=== PATIENT | male | born 1945 | race Caucasian/White ===

== ENCOUNTER 2020-07-01 15:54 | Inpatient (IN) | payer MEDICARE, SELFPAY ==
[2020-07-01] VITALS (9 sets, daily range): BP systolic 136–179; BP diastolic 29–105; PULSE 81–100; RESP 18; TEMP 36.7; O2SAT 96–98; BMI 27.2; BMI 25.2
--- NOTE | 2020-07-01 16:07 | CT_ITS ---
Procedure: CT ABDOMEN PELVIS WO CON Patient Age:74Y CLINICAL INDICATION: RLQ abd pain Abdominal pain with urinary retention past 8-10 days. Has been treated for prostate infection COMPARISON: No exams were available for comparison TECHNIQUE: No IV nor oral contrast utilized Helical axial images obtained with thickened axial images along with sagittal and coronal reformats. All CT scans at the facility use one or more dose reduction, viz: automated exposure control, ma/kV adjustment per patient size (including targeted exams where dose is matched to indication, i.e. head), or iterative reconstruction technique. FINDINGS: Lower thorax:. Moderate/Generous appearing right pleural effusion Prominent atelectatic changes right lung base involving R ML and RLL. Favor atelectasis but difficult to totally exclude early infiltrate. Associated elevation the right hemidiaphragm reflects volume loss due to atelectasis. Left lung base clear. Heart normal size. Small hiatal hernia noted. Heart normal size ABDOMEN: Spleen: unremarkable Adrenals: unremarkable Liver: No significant findings on this noncontrast study. Subtle low-density liver near falciform ligament region is likely subtle small area focal fatty change and unimpressive but noted scant. Ligamentum teres barely evident thin fluid overlying anterior aspect of right lobe noted fusion the liver. Gallbladder nondistended. No discrete calcified stones. No wall thickening evident Pancreas: No masses but no ductal dilatation. Stranding and inflammation adjacent to the head of the pancreas most likely is related to the renal process described in section. tract Prostate is enlarged measuring up to 6.1 cm transverse and near 5 cm height. Enlarged prostate slightly indents the base the bladder. Urinary bladder is markedly distended to measuring near 22 cm in maximum length x 13 cm wide. No bladder stones definitive bladder masses otherwise seen. Ureters diffusely dilated bilaterally-but particularly note right ureter is more dilated than the left. The right appears most dilated at the right pelvis where dilated right ureter seen leading down to the right trigone. I see no calculi along the course of either ureter. There is some mild thickening the region the right trigone but no definitive mass. Left kidney. Mild hydronephrosis with a 3.3 cm left probable debris-filled parapelvic cyst along inferior aspect the left renal pelvis but this well will benefit from follow-up as it is slightly higher density than simple fluid and cystic nature should be better confirmed on subsequent follow-up CT or ultrasound. Right kidney. Severe hydronephrosis.-Marked distention and dilatation of the right renal pelvis which measures nearly 7.5 cm AP dimension I believe accounts for the appearance here. VRC question possible large parapelvic cyst on right but I favor this is severe dilatation of right renal pelvis-. With associated with pronounced right caliectasis. This high-grade obstruction has resulted prominent pelvicaliceal backflow and prominent leakage from the from right pelvocaliceal system. V RC preliminary report described possible rupture of right pelvocaliceal system and this is a possibility. Either case this resulted in a a prominent fluid collection/urinoma posterior, and seen extending and continuous fashion of towards the right inguinal region but of this fluid collection resides anterior to the right psoas muscle at the posterior aspect right perirenal space I presume this is all a urinoma type process from the obstruction but it is difficult to totally exclude infection associated with this fluid collection. It appears to have a
--- NOTE | 2020-07-01 16:08 | HMH.EDGENADL ---
ED Disposition Clinical Impression: Acute renal failure Qualifiers: Acute renal failure type: with other specified pathological lesion Qualified Code(s): N17.8 - Other acute kidney failure Disposition: Admitted As Inpatient Condition on Discharge: Serious Referrals: Belén Reyes DO [Primary Care Provider] - - Critical Care Critical Care Time: No Attestation: On , the high probability of a clinically significant, sudden or life threatening deterioration of the following system(s) required my full and direct attention, intervention and personal management. The time I documented below is in addition to time spent performing reported procedures but includes the following listed in this critical care notation. Medical Decision Making - Medical Records Medical records reviewed: Yes: I reviewed the patient's medical records. - Thad Inquiry Pt receiving controlled substance: No Vital Signs: 07/01/20 16:01 07/01/20 16:10 07/01/20 17:29 Temperature 98.1 F Temperature Source Oral Pulse Rate [Radial] 84 85 81 Respiratory Rate 18 Blood Pressure [Right Arm] 175/29 H 179/105 H 163/98 H Blood Pressure Mean [Right Arm] 77 129 119 Blood Pressure Source [Right Arm] Automatic Cuff Automatic Cuff Automatic Cuff Blood Pressure Position [Right Arm] Sitting Sitting Sitting 02 Sat by Pulse Oximetry 97 97 96 Oxygen Delivery Method Room Air Room Air Room Air 07/01/20 18:29 07/01/20 18:30 Temperature Temperature Source Pulse Rate [Radial] 83 85 Respiratory Rate Blood Pressure [Right Arm] 167/92 H 173/86 H Blood Pressure Mean [Right Arm] 117 115 Blood Pressure Source [Right Arm] Automatic Cuff Automatic Cuff Blood Pressure Position [Right Arm] Sitting Sitting 02 Sat by Pulse Oximetry 96 97 Oxygen Delivery Method Room Air Room Air - Lab Data Lab results reviewed: Yes: I reviewed the patient's lab results. Lab Results 07/01/20 17:04: WBC 17.4 H, RBC 4.70, Hgb 14.1, Hct 41.7 L, MCV 88.8, MCH 30.0, MCHC 33.8, RDW 13.1, Plt Count 501 H, MPV 7.9, Neut % (Auto) 86.3 H, Lymph % (Auto) 9.2 L, [place] % (Auto) 4.0, Eos % (Auto) 0.2, Baso % (Auto) 0.2, Neut # (Auto) 15.0 H, Lymph # (Auto) 1.6, [place] # (Auto) 0.7, Eos # (Auto) 0.0, Baso # (Auto) 0.0, Total Counted 100, Neutrophils % (Manual) 82 H, Lymphocytes % (Manual) 13, Monocytes % (Manual) 5, Platelet Estimate Slight increase, RBC Morphology Normal 07/01/20 17:04: Sodium 118 L, Potassium 5.1, Chloride 85 L, Carbon Dioxide 17 L, Anion Gap 21.1 H, BUN 65 H, Creatinine 6.00 H, Estimated Creat Clear 12, Estimated GFR 9 L*, Est GFR ( Amer) 11 L*, Glucose 105 H, Calcium 9.1, Total Bilirubin 0.7, AST 37, ALT 34, Alkaline Phosphatase 107, Total Protein 6.8, Albumin 3.5, Globulin 3.3 H, Albumin/Globulin Ratio 1.1 07/01/20 17:04: Urine Color Yellow, Urine Appearance Clear, Urine pH 5.5, Ur Specific [place] 1.010, Urine Protein Negative, Urine Glucose (UA) Negative, Urine Ketones Negative, Urine Blood Negative, Urine Nitrate Negative, Urine Bilirubin Negative, Urine Urobilinogen 0.2, Ur Leukocyte Esterase Negative, Urine WBC Occasional, Ur Squamous Epith Cells Occasional, Urine Bacteria Trace 07/01/20 17:04: Lactate 0.9 07/01/20 17:04: Lipase 238 Result diagrams: 07/01/20 17:04 07/01/20 17:04 Orders (Tests/Meds): ORDERS Category Date Time Status CT abdomen pelvis wo con Stat Cat Scan 07/01/20 16:07 Taken Osmolality Stat Lab 07/01/20 17:04 Received - CT Data CT Scan: Abdomen, Pelvis Time Received: 16:[address] Reviewed: Yes: I have reviewed the patient's CT results, I discussed the CT results w/the radiologist, I have viewed the radiologist's interpretation Preliminary Findings: Abnormal Findings Narrative: #1 markedly distended urinary bladder with subsequent bilateral hydroureteral nephrosis but no obstructing calculi #2 rupture in the right collecting system with extensive urinoma formation in the right perirenal and pararenal spaces extending all the way down
--- NOTE | 2020-07-01 17:09 | PC.NURSE ---
1800 ml of urine out through larios at this time.
[2020-07-01 17:17] LABS: Microscopic, Urine URINE MICROSCOPIC (MICROSCOPIC)
--- NOTE | 2020-07-01 17:17 | ECG_ITS ---
APPROVED REPORT Exam: Resting ECG HR:83 bpm ECG Measurements Heart Rate 83 AXES WI 150 P 25 QRSd 94 QRS 39 QT 362 T 19 QTc 425 <Conclusion> Normal sinus rhythm Normal ECG Electronically signed by : Alexander Ascencio, 07/02/2020 22:03:55
--- NOTE | 2020-07-01 17:23 | PC.NURSE ---
HARRISON BLACKBURN speaking with JONNIE at this time.
[2020-07-01 17:30] LABS: Appearance,Urine CLEAR (Clear); Basophils % 0.2 % (0.1-2.0); Bilirubin,Urine Negative (Negative); Blood, Urine Negative (Negative); Chloride 85 mmol/L (98-107); Color,Urine YELLOW (Yellow); Eosinophils % 0.2 % (0.1-12.0); Glucose,Urine (UA) Negative (Negative); Hematocrit 41.7 % (42.0-52.0); Hemoglobin 14.1 g/dL (14.1-18.0); Ketones,Urine Negative (Negative); Leukocyte Esterase,Urine Negative (Negative); Lymphocytes # 1.6 K/mm3 (0.7-4.5); Lymphocytes % 9.2 % (10-50); Mean Corpuscular HGB Conc 33.8 g/dL (31.8-35.4); Mean Corpuscular Volume 88.8 fl (80-94); Mean Platelet Volume 7.9 fl (7.4-10.4); Monocytes # 0.7 K/mm3 (0.1-1.0); Neutrophils % 86.3 % (37.0-80.0); Nitrate,Urine Negative (Negative); PH,Urine 5.5 (5.0-8.5); Platelet Count 501 K/mm3 (142-424); Potassium 5.1 mmoL/L (3.5-5.1); Protein,Urine Negative (Negative); Red Cell Distribution Width 13.1 % (11.5-17.5); Sodium 118 mmol/L (136-145); Urobilinogen,Urine 0.2 EU/dl (0.2); White Blood Count 17.4 K/mm3 (4.8-10.8)
[2020-07-01 17:33] LABS: Alanine Aminotransferase 34 U/L (12-78); Albumin Level 3.5 g/dl (3.5-5.0); Albumin/Globulin Ratio 1.1 (1.1-1.8); Alkaline Phosphatase 107 U/L (38-126); Anion Gap 21.1 mEq/L (5-15); Aspartate Amino Transferase 37 U/L (17-59); Bilirubin,Total 0.7 mg/dl (0.2-1.3); Blood Urea Nitrogen 65 mg/dl (9-20); Calcium 9.1 mg/dl (8.4-10.2); Carbon Dioxide 17 mmol/L (22.0-30.0); Creatinine Clearance Estimated 12 mL/min (50-200); Estimated Glomerular Filt Rate 9 ml/min (>60); GFR (African American) 11 ML/MIN (>60); Globulin 3.3 g/dL (1.3-3.2); Glucose 105 mg/dl (74-100); Total Protein,Serum 6.8 g/dl (6.3-8.2)
[2020-07-01 17:34] LABS: Lactic Acid 0.9 mmol/L (0.7-2.1); Lipase 238 U/L (23-300)
[2020-07-01 17:35] LABS: MANUAL DIFFERENTIAL MANUAL DIFFERENTIAL (MANUAL DIFF)
[2020-07-01 17:38] LABS: Bacteria,Urine Trace /lpf; Squamous Epithelial Cell,Urine Occasional #/hpf (0-5); WBC,Urine Occasional #/hpf (0-3)
--- NOTE | 2020-07-01 17:49 | PC.NURSE ---
Calling [facility] at this time.
--- NOTE | 2020-07-01 17:51 | PC.NURSE ---
HARRISON BLACKBURN speaking with Dr De León at
[2020-07-01 17:58] LABS: Lymphocytes % 13 % (10-50); Monocytes % 5 % (2-9); Neutrophils % 82 % (42-76); Platelet Estimate Slight Increase; RBC Morphology Normal; Total Cells Counted 100
--- NOTE | 2020-07-01 18:17 | PC.NURSE ---
Per Dr Howard MD at was trying to override the divert to accept pt. Will call back.
--- NOTE | 2020-07-01 18:33 | PC.NURSE ---
Dr Lawrence speaking with [facility] again at this time. Pt urinated 950ml through larios
--- NOTE | 2020-07-01 18:39 | PC.NURSE ---
Service Dr novak.
--- NOTE | 2020-07-01 18:41 | PC.NURSE ---
Dr Thornton returned call.
--- NOTE | 2020-07-01 18:57 | PC.NURSE ---
contacted house wirer for bed assignment
--- NOTE | 2020-07-01 20:11 | PC.NURSE ---
PT ARRIVED TO THE FLOOR VIA STRETCHER FROM ED AT 2010.
--- NOTE | 2020-07-01 20:20 | PC.NURSE ---
noted invanz incorrectly placed on this patient, received call from barry draper to clarify situation. noted same med on patient in room 8 in ed placed at same time. discussed with doctor who states there is no documented infection on the chart.
[2020-07-01 21:08] LABS: Anion Gap 20.7 mEq/L (5-15); Blood Urea Nitrogen 58 mg/dl (9-20); Calcium 8.9 mg/dl (8.4-10.2); Carbon Dioxide 16 mmol/L (22.0-30.0); Chloride 93 mmol/L (98-107); Creatinine Clearance Estimated 17 mL/min (50-200); Estimated Glomerular Filt Rate 14 ml/min (>60); Glucose 99 mg/dl (74-100); Potassium 4.7 mmoL/L (3.5-5.1); Sodium 125 mmol/L (136-145)
[2020-07-01 21:09] LABS: GFR (African American) 17 ML/MIN (>60)
--- NOTE | 2020-07-01 22:10 | HMH.HP ---
*Admission Date: 07/01/20 *Chief complaint: Right sided abdominal pain *History of present illness: This 74-year-old white male was admitted from the emergency room at [facility]. He presented with complaints of right sided abdominal pain. He has been followed over the past several weeks by a provider by the name of Belén Reyes in [facility], and has been treated for state problems he states. He has had progressive difficulty in urinating. He passes small amounts of water and then feels that he must urinate again. He has had no fever. He has had no vomiting, he has had no diarrhea. His discomfort became great today and he presented in the emergency room. There a CT revealed urinary obstruction with massive dilatation of the bladder plus evidence of a rupture of the ureter on the right with a urinoma. Upon bladder catheterization he was relieved of 2500 cc of urine. He states that at this time he feels much improved with much less pain on the right. Dr. Lawrence in the emergency room made contact with the [facility] for transfer of this patient, but there was no bed availability at this time. [facility] stated that transfer in the morning was a possibility. [facility] History Medical History: Denies:: Atrial Fibrillation, Cancer, Congestive Heart Failure, Diabetes Mellitus Type 1, Diabetes Mellitus Type 2, Kidney Stones, Urinary Tract Infection *Have you ever received a pneumonia vaccine?: No *Have you received a flu vaccine this season?: Yes Other Medical History: Denies: Hypothyroidism, Thyroid Disease Laterality Cases: Left: Other (left chest lesion from injury age 14) Other Surgeries: Yes: Hernia Repair (right groin) Comment: Has received injections in his right knee for arthritis. He also has arthritis of the left knee. - *Social History Last grade of school completed: Some college Smoking Status: Never smoker Alcohol Intake: never *Occupational Status:: retired ([place] in [facility]. 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 Mother with osteoarthritis.), Cancer (Sister with breast cancer), no Thyroid Disorder Review of Systems - Constitutional Reports anorexia, Denies chills, Denies fever(s) - Eyes Reports requires corrective lenses, Denies change in vision - ENT Denies difficulty swallowing - *Cardiovascular Denies chest pain, Denies irregular heart rhythm, Denies rapid, pounding, or irregular heartbeat - *Respiratory Denies chest congestion - *Gastrointestinal Reports abdominal pain, Denies change in bowel habits, Denies constipation - *Genitourinary Reports difficulty urinating, Reports side pain, Denies testicle pain (History of decrease in size of left testicle vascular etiology.) - *Musculoskeletal Denies muscle weakness - Integumentary/Breasts Reports breast skin changes (Scar due to previous surgery) - *Neurologic Denies abnormal walking, Denies behavioral changes, Denies dizziness - Psychiatric Denies behavioral changes - Endocrine Denies rapid, pounding, or irregular heartbeat - Hematologic/Lymphatic Denies easy bleeding - Allergic/Immunologic Denies GI upset with certain foods Meds Home Medications Medication Instructions Recorded Confirmed Type Glucosamine/D3/Boswellia Mel 1 each PO DAILY 07/01/20 07/01/20 History [Osteo Bi-Flex Tablet] Mv-Mn/Folic Acid/Lutein/Nlk106 1 each PO DAILY 07/01/20 07/01/20 History [Mens Multivit High Potency Tab] [place]-3 Fatty Acids/Fish Oil 1 each PO DAILY 07/01/20 07/01/20 History [[place] 3 1,000 mg Softgel] Tamsulosin HCl 0.4 mg PO DAILY 07/01/20 07/01/20 History Allergies Allergy/AdvReac Type Severity Reaction Status Date / Time acetaminophen [From Lortab] Allergy Verified 07/01/20 16:06 codeine Allergy Verified 07/01/20 16:06 hydrocodon
--- NOTE | 2020-07-01 22:19 | ECG_ITS ---
APPROVED REPORT Exam: Resting ECG HR:100 bpm ECG Measurements Heart Rate 100 AXES MS 188 P QRSd 94 QRS 14 QT 338 T 43 QTc 436 <Conclusion> Normal sinus rhythm,PAC'S Noted Otherwise a Normal ECG Electronically signed by : Alexander Ascencio, 07/02/2020 21:55:06
[2020-07-02] VITALS (12 sets, daily range): BP systolic 113–147; BP diastolic 75–91; PULSE 70–98; RESP 14–18; TEMP 36.5–37.1; O2SAT 93–97; BMI 23.8
--- NOTE | 2020-07-02 02:25 | PC.NURSE ---
PT IS A&O X4. HE RESTED WELL WITH EYES CLOSED THIS SHIFT WITH MILD C/O PAIN. HE STATES THE PAIN IS IN HIS RIGHT KNEE FROM ARTHRITIS, DENIES PAIN OF ABD THUS FAR THIS SHIFT. PT ALSO STATES HE HAS NOT BEEN ABLE TO GET HIS KNEE INJECTIONS RECENTLY AND HAS BEEN DEALING WITH A GREAT DEAL OF PAIN TO HIS RIGHT KNEE. HE TAKES TYLENOL AND IBUPROFEN AT HOME FOR MILD RELIEF. PT RATES KNEE PAIN A 2/10 AT TIME OF ADMISSION, AND STATES HE WILL BE OKAY UNTIL IN THE MORNING . DENIED PAIN WITH LIGHT ABD PALPATION. TOLERATES RA WELL WITH NO C/O SOA. CLEAR BREATH SOUNDS NOTED UPON AUSCULTATION. RR NOTED EVEN AND UNLABORED. +1 PITTING EDEMA NOTED TO BLE. ADEQUATE URINE OUTPUT NOTED THUS FAR PER FC, GREATER THAN 4,500 CC URINE OUTPUT. URINE NOTED CLEAR AND BRIGHT YELLOW IN COLOR. NO ABD DISTENTION NOTED. PT STATES HIS LAST BM WAS 07/01/20 PRIOR TO ARRIVAL AT [facility]. VSS. REMAINS SAFE. REFUSED TEDS. CALL LIGHT WITHIN REACH. WILL CONTINUE TO MONITOR.
--- NOTE | 2020-07-02 03:15 | PC.NURSE ---
SPOKE WITH JEREMIAS THE TRANSFER NURSE AT . SHE CALLED FOR AN UPDATE ON THE PT. STATES SHE WILL CALL BACK LATER THIS AM TO GIVE AN UPDATE ON STATUS OF OPEN BED FOR PT, HE IS HIGH PRIORITY AT THIS TIME.
[2020-07-02 05:57] LABS: Basophils % 0.2 % (0.1-2.0); Eosinophils % 0.3 % (0.1-12.0); Hematocrit 40.7 % (42.0-52.0); Hemoglobin 13.5 g/dL (14.1-18.0); Lymphocytes # 1.2 K/mm3 (0.7-4.5); Lymphocytes % 10.3 % (10-50); Mean Corpuscular HGB Conc 33.2 g/dL (31.8-35.4); Mean Corpuscular Hemoglobin 29.9 pg (27.0-31.2); Mean Corpuscular Volume 90.3 fl (80-94); Mean Platelet Volume 7.2 fl (7.4-10.4); Monocytes # 0.6 K/mm3 (0.1-1.0); Monocytes % 5.1 % (1.7-9.3); Neutrophils # 9.9 K/mm3 (1.8-7.8); Neutrophils % 84.2 % (37.0-80.0); Platelet Count 506 K/mm3 (142-424); Red Blood Count 4.51 M/mm3 (4.60-6.20); Red Cell Distribution Width 13.4 % (11.5-17.5); White Blood Count 11.8 K/mm3 (4.8-10.8)
[2020-07-02 06:03] LABS: Alanine Aminotransferase 28 U/L (12-78); Alkaline Phosphatase 99 U/L (38-126); Anion Gap 15.5 mEq/L (5-15); Aspartate Amino Transferase 34 U/L (17-59); Bilirubin,Total 0.7 mg/dl (0.2-1.3); Blood Urea Nitrogen 40 mg/dl (9-20); Calcium 8.7 mg/dl (8.4-10.2); Carbon Dioxide 20 mmol/L (22.0-30.0); Chloride 103 mmol/L (98-107); Creatinine Clearance Estimated 31 mL/min (50-200); Estimated Glomerular Filt Rate 31 ml/min (>60); GFR (African American) 37 ML/MIN (>60); Glucose 92 mg/dl (74-100); Potassium 4.5 mmoL/L (3.5-5.1); Sodium 134 mmol/L (136-145)
--- NOTE | 2020-07-02 08:00 | CT_ITS ---
Procedure: CT ABDOMEN PELVIS WO CON Patient Age:74Y CLINICAL INDICATION: follow-up urinoma, right The of his COMPARISON: No exams were available for comparison TECHNIQUE: No IV nor oral contrast Helical axial images obtained with sagittal and coronal reformats. All CT scans at the facility use one or more dose reduction, viz: automated exposure control, ma/kV adjustment per patient size (including targeted exams where dose is matched to indication, i.e. head), or iterative reconstruction technique. FINDINGS: Additional motion artifact on today's study which slight degrades images particularly here at the upper abdomen. Lower thorax: Moderate right pleural effusion which has slightly decreased since yesterday CT. The basilar atelectasis and consolidation persist. ABDOMEN: Liver: No significant findings. No masses or biliary dilatation. Gallbladder: Nondistended. No definitive radio opaque stones. But there may be some debris towards the dependent gallbladder . Common duct appears normal Pancreas: Modest size with no significant findings.. No pancreatic duct dilatation. Spleen: unremarkable Adrenals: unrem no significant findings e tract A Daniels catheter is been placed since yesterday and has decompressed the prominent distended urinary bladder.. With this there is less dilatation of the both ureters and resolution of the left hydronephrosis. Left kidney: No calculi nor significant residual obstruction. Again note slightly curious 3.3 cm height structure just inferior to the left renal pelvis and left UPJ.. His margins were better delineated on yesterday's scan. Again this may be a peripelvic cyst with debris but note its density is slightly greater than urine-and thus will warrant follow-up ultrasound at some point. Right kidney/ureter: Distal right pelvic ureter approaching the bladder remains dilated but no stone is seen here. More proximal right ureter has decreased in size and only minimally dilated. There has been significant decrease in volume of the of large extrarenal pelvis. (Yesterday measuring over 7 cm height X 7.5 cm AP. Today of it measures 5 cm height x 5.5 cm AP now measuring 5 cm) and resolution of the caliectasis. The large urinoma posterior to the right kidney, extending anterior to the psoas muscle to right pelvis shown marked decrease size, marked improvement.. GI tract. --------- There is increased bowel gas since yesterday most evident at large bowel and specifically noted slightly distending transverse colon. Minimal stool in colon but would note fluid right colon. Small bowel with increased gas and scattered air-fluid levels but no dilatation. Overall pattern could reflect reflect a mild ileus.. Very redundant sigmoid colon appendix is I believe visualized today, with no appendicitis evident .. Small hiatal hernia again observed. Peritoneum: . No free air. Lymph nodes: No enlarged lymph nodes apparent. Vasculature: No evidence of abdominal aortic aneurysm... Bones: No acute fracture IMPRESSION: 1..Daniels catheter has decompressed the prominently distended urinary bladder. This as resulted in decompression of the entire collecting systems bilaterally. Yesterday's bilateral hydronephrosis for the most part has resolved. With this the large right urinoma has also shown marked decrease in size. , With marked regression of perirenal stranding, fluid and findings here since yesterday Right kidney: Prominent extrarenal pelvis on right persists but has shown marked improvement is/marked decreased in size, with resolution of right caliectasis seen yesterday.. Left kidney: Resolution of left hydronep
--- NOTE | 2020-07-02 08:01 | P.CONPHA_ITS ---
[facility] Pharmacy VTE Monitoring - Patient Demographics Admission date: 07/01/20 Report Date: 07/02/20 Time: 08:01 Allergies/Adverse Reactions: Patient Allergies acetaminophen [From Lortab] Allergy (Verified 07/01/20 16:06) codeine Allergy (Verified 07/01/20 16:06) hydrocodone [From Lortab] Allergy (Verified 07/01/20 16:06) Height: 1.75 m Weight: 73.142 kg Patient Problems: Current Active Problems Acute renal failure (Acute) Acute urinary retention (Acute) Partial rupture of ureteropelvic junction (UPJ) (Acute) Paraureteric urinoma (Acute) PAC (premature atrial contraction) (Acute) Hyponatremia (Acute) - VTE Risk Labs: VTE Related Lab Results Hgb 13.5 g/dL (14.1-18.0) L 07/02/20 05:30 Hct 40.7 % (42.0-52.0) L 07/02/20 05:30 Plt Count 506 K/mm3 (142-424) H 07/02/20 05:30 BUN 40 mg/dl (9-20) H D 07/02/20 05:30 Creatinine 2.10 mg/dl (0.66-1.25) H D 07/02/20 05:30 Estimated Creat Clear 31 mL/min (50-200) 07/02/20 05:30 VTE Score: 2 - Prophylaxis VTE Prophylaxis Ordered?: Yes Types of VTE Prophylaxis: TEDS Knee High Location of Applied Device: Bilateral Lower Extremeties - VTE Diagnosis Confirmed Treatment or plan recommended: Continue Current Treatment
--- NOTE | 2020-07-02 08:02 | HMH.PHAINT ---
MEDICATION RECONCILIATION COMPLETED ON PATIENT USING EXTERNAL FILL HISTORY FROM PHARMACY. -KINGA ANTOINE, ADRIENNED
--- NOTE | 2020-07-02 13:52 | HMH.ACPN2 ---
Internal Medicine - PN: Subj *Date: 07/02/20 *Time: 13:52 Interval history: Mr. Bond is feeling well and had a quiet night. He is very pleased with the care that he is gotten here. He has very little residual abdominal pain at this point. His repeat CT scan this morning showed significant improvement even in the urinoma: IMPRESSION: 1..Daniels catheter has decompressed the prominently distended urinary bladder. This as resulted in decompression of the entire collecting systems bilaterally. Yesterday's bilateral hydronephrosis for the most part has resolved. With this the large right urinoma has also shown marked decrease in size. , With marked regression of perirenal stranding, fluid and findings here since yesterday Right kidney: Prominent extrarenal pelvis on right persists but has shown marked improvement is/marked decreased in size, with resolution of right caliectasis seen yesterday.. Left kidney: Resolution of left hydronephrosis, but again note 3.3 cm suspect debris-filled parapelvic cyst inferior to the left renal pelvis. Will benefit from ultrasound follow-up at some point in future 2... Moderate right pleural effusion has also decreased in size since yesterday. Atelectasis and airspace disease at right lung persist Dr. Thornton spent some time this morning talking with Dr. Covarrubias regarding this case. After discussing approaches and options, I feel that it is best to continue to observe the patient and have consultation with Dr. Ferrari urologist tomorrow. The emergency room doctor inappropriately discontinued my order for [employer] last evening. Exam Vital signs and Labs for Last 24 Hours: Temp Pulse Resp BP Pulse Ox 97.7 F 89 18 135/79 96 07/02/20 11:14 07/02/20 11:14 07/02/20 11:14 07/02/20 11:14 07/02/20 11:14 Laboratory Results - last 24 hr 07/01/20 17:04: WBC 17.4 H, RBC 4.70, Hgb 14.1, Hct 41.7 L, MCV 88.8, MCH 30.0, MCHC 33.8, RDW 13.1, Plt Count 501 H, MPV 7.9, Neut % (Auto) 86.3 H, Lymph % (Auto) 9.2 L, [place] % (Auto) 4.0, Eos % (Auto) 0.2, Baso % (Auto) 0.2, Neut # (Auto) 15.0 H, Lymph # (Auto) 1.6, [place] # (Auto) 0.7, Eos # (Auto) 0.0, Baso # (Auto) 0.0, Total Counted 100, Neutrophils % (Manual) 82 H, Lymphocytes % (Manual) 13, Monocytes % (Manual) 5, Platelet Estimate Slight increase, RBC Morphology Normal 07/01/20 17:04: Sodium 118 L, Potassium 5.1, Chloride 85 L, Carbon Dioxide 17 L, Anion Gap 21.1 H, BUN 65 H, Creatinine 6.00 H, Estimated Creat Clear 12, Estimated GFR 9 L*, Est GFR ( Amer) 11 L*, Glucose 105 H, Calcium 9.1, Total Bilirubin 0.7, AST 37, ALT 34, Alkaline Phosphatase 107, Total Protein 6.8, Albumin 3.5, Globulin 3.3 H, Albumin/Globulin Ratio 1.1 07/01/20 17:04: Urine Color Yellow, Urine Appearance Clear, Urine pH 5.5, Ur Specific [place] 1.010, Urine Protein Negative, Urine Glucose (UA) Negative, Urine Ketones Negative, Urine Blood Negative, Urine Nitrate Negative, Urine Bilirubin Negative, Urine Urobilinogen 0.2, Ur Leukocyte Esterase Negative, Urine WBC Occasional, Ur Squamous Epith Cells Occasional, Urine Bacteria Trace 07/01/20 17:04: Lactate 0.9 07/01/20 17:04: Lipase 238 07/01/20 20:50: Sodium 125 L, Potassium 4.7, Chloride 93 L, Carbon Dioxide 16 L, Anion Gap 20.7 H, BUN 58 H, Creatinine 4.10 H D, Estimated Creat Clear 17, Estimated GFR 14 L*, Est GFR ( Amer) 17 L* D, Glucose 99, Calcium 8.9 07/02/20 05:30: WBC 11.8 H D, RBC 4.51 L, Hgb 13.5 L, Hct 40.7 L, MCV 90.3, MCH 29.9, MCHC 33.2, RDW 13.4, Plt Count 506 H, MPV 7.2 L, Neut % (Auto) 84.2 H, Lymph % (Auto) 10.3, [place] % (Auto) 5.1, Eos % (Auto) 0.3, Baso % (Auto) 0.2, Neut # (Auto) 9.9 H, Lymph # (Auto) 1.2, [place] # (Auto) 0.6, Eos # (Auto) 0.0, Baso # (Auto) 0.0 07/02/20 05:30: Sodium 134 L, Potassium 4.5, Chloride 103, Carbon Dioxide 20 L D, Anion Gap 15.5 H, BUN 40 H D, Creatinine 2.10 H D, Estimated Creat Clear 31, Estimated GFR 31 L, Est GFR ( Amer) 37 L D, Glucose 92, Calcium 8.7, Tot
[2020-07-02 14:58] LABS: Prostate Specific Ag Screen 26.8 ng/ml (0.0-4.0)
--- NOTE | 2020-07-02 16:40 | PC.NURSE ---
SPOKE WITH TRANSFER NURSE AT 1640, UPDATE PROVIDED ON PT AND [facility] WILL CALL BACK LATER TONIGHT. PT IS ALERT AND ORIENTED X4. AMBULATES INDEPENDENTLY WITH WALKER. PT HAS BEEN IN BED ENTIRE SHIFT, TURNS SELF WITHOUT DIFFICULTY. HE HAS TOLERATED HIS DIET. DENIES PAIN. NO COMPLAINTS VOICED. DOUGHERTY CATHETER IS SECURE, PATENT, AND DRAINING DARK RC URINE WITHOUT PROBLEM. PT HAS HAD ADEQUATE URINARY OUTPUT APPROXIMATELY 2000ML. VSS. NO DISTRESS NOTED. SAFETY MEASURES IN PLACE. WILL CONTINUE TO MONITOR
[2020-07-03] VITALS (11 sets, daily range): BP systolic 123–154; BP diastolic 71–94; PULSE 60–85; RESP 16–20; TEMP 36.6–36.8; O2SAT 96–99; BMI 25.4
--- NOTE | 2020-07-03 03:15 | PC.NURSE ---
A&OX4. PT HAS TOLERATED RA WELL T/O SHIFT. PT HAS HAD NO C/O PAIN OR NA/VO THUS FAR THIS SHIFT. PT TOLERATING NPO DIET WELL SINCE . F/C PRESENT DRAINING DARK YELLOW URINE. PT UP IN ROOM WITH STANDBY ASSIST. PT RESTING IN BED WITH EYES CLOSED T/O MAJORITY OF SHIFT. NO C/O THUS FAR, VSS WILL CONTINUE TO MONITOR.
[2020-07-03 06:33] LABS: Chloride 107 mmol/L (98-107); Sodium 137 mmol/L (136-145)
[2020-07-03 06:34] LABS: Potassium 4.1 mmoL/L (3.5-5.1)
[2020-07-03 06:36] LABS: Blood Urea Nitrogen 18 mg/dl (9-20); Creatinine Clearance Estimated 70 mL/min (50-200); Estimated Glomerular Filt Rate 82 ml/min (>60); GFR (African American) 100 ML/MIN (>60)
[2020-07-03 06:37] LABS: Anion Gap 11.1 mEq/L (5-15); Basophils # 0.1 K/mm3 (0-0.2); Basophils % 0.5 % (0.1-2.0); Calcium 8.4 mg/dl (8.4-10.2); Carbon Dioxide 23 mmol/L (22.0-30.0); Eosinophils # 0.2 K/mm3 (0.0-0.4); Glucose 92 mg/dl (74-100); Hematocrit 38.4 % (42.0-52.0); Hemoglobin 12.6 g/dL (14.1-18.0); Lymphocytes % 19.1 % (10-50); Mean Corpuscular Hemoglobin 30.1 pg (27.0-31.2); Mean Corpuscular Volume 91.2 fl (80-94); Mean Platelet Volume 7.4 fl (7.4-10.4); Monocytes # 0.5 K/mm3 (0.1-1.0); Monocytes % 4.5 % (1.7-9.3); Neutrophils # 7.8 K/mm3 (1.8-7.8); Neutrophils % 73.9 % (37.0-80.0); Platelet Count 509 K/mm3 (142-424); Red Blood Count 4.21 M/mm3 (4.60-6.20); Red Cell Distribution Width 13.4 % (11.5-17.5); White Blood Count 10.5 K/mm3 (4.8-10.8)
--- NOTE | 2020-07-03 07:51 | HMH.ACPN2 ---
Internal Medicine - PN: Subj *Date: 07/03/20 *Time: 07:51 Interval history: Had a comfortable night. He did sleep. Catheter has been draining without problems. He is n.p.o. for urology consult this a.m. He denies chest pain and shortness of breath. He did sit up in a chair yesterday. Bowels have not moved. Repeat labs this morning show white blood cell count normalized at 10,500. Blood chemistries within normal electrolytes and renal function. PSA is noted to be 26.8. Urine culture is negative thus far. Exam Vital signs and Labs for Last 24 Hours: Temp Pulse Resp BP Pulse Ox 97.9 F 70 18 153/84 H 98 07/03/20 07:47 07/03/20 07:47 07/03/20 07:47 07/03/20 07:47 07/03/20 07:47 Laboratory Results - last 24 hr 07/02/20 05:30: PSA Screen 26.8 H 07/03/20 06:12: WBC 10.5, RBC 4.21 L, Hgb 12.6 L, Hct 38.4 L, MCV 91.2, MCH 30.1, MCHC 33.0, RDW 13.4, Plt Count 509 H, MPV 7.4, Neut % (Auto) 73.9, Lymph % (Auto) 19.1, [place] % (Auto) 4.5, Eos % (Auto) 2.0, Baso % (Auto) 0.5, Neut # (Auto) 7.8, Lymph # (Auto) 2.0, [place] # (Auto) 0.5, Eos # (Auto) 0.2, Baso # (Auto) 0.1 07/03/20 06:12: Sodium 137, Potassium 4.1, Chloride 107, Carbon Dioxide 23, Anion Gap 11.1, BUN 18 D, Creatinine 0.90 D, Estimated Creat Clear 70, Estimated GFR 82, Est GFR ( Amer) 100 D, Glucose 92, Calcium 8.4 I & O for Last 24 hours: Intake & Output 06/30/20 07/01/20 07/02/20 07/03/20 11:59 11:59 11:59 11:59 Intake Total 611 / 611 1915 / 1915 Output Total 5600 / 5600 1899 / 190 Balance -4989 / -4989 Weight 161 lb 4 oz 172 lb 1 oz Microbiology Reports for the Last 24 Hours: Microbiology 07/01/20 17:04 Urine,Catheterized Urine Culture - Preliminary NO GROWTH AFTER 24 HOURS - Constitutional no acute distress Comments: Lying in bed and appears comfortable - *Routine Respiratory Exam Present: CTA bilaterally (Anteriorly and posteriorly) - *Routine Cardiovascular Exam Present: RRR - *Routine Abdominal Exam Present: soft. Absent: tenderness Comments: Decreased bowel sounds - *Routine Extremities Exam Absent: edema, calf tenderness - *Routine Neurological Exam Present: alert, oriented X3 Assessment and Plan (1) Acute urinary retention Current visit: Yes Status: Acute Category: Medical Code(s): R33.8 - Other retention of urine (2) Partial rupture of ureteropelvic junction (UPJ) Current visit: Yes Status: Acute Category: Medical Code(s): N28.89 - Other specified disorders of kidney and ureter (3) Paraureteric urinoma Current visit: Yes Status: Acute Category: Medical Code(s): N28.89 - Other specified disorders of kidney and ureter (4) PAC (premature atrial contraction) Current visit: Yes Status: Acute Category: Medical Code(s): I49.1 - Atrial premature depolarization (5) Hyponatremia Current visit: Yes Status: Acute Category: Medical Code(s): E87.1 - Hypo-osmolality and hyponatremia (6) Acute renal failure Current visit: Yes Status: Acute Qualifiers: Acute renal failure type: with other specified pathological lesion Qualified Code(s): N17.8 - Other acute kidney failure Category: Medical Code(s): N17.9 - Acute kidney failure, unspecified - Assessment and plan all Dx Assessment and Plan for all problems:: Patient with urology consult for this a.m. Otherwise we will continue current care.
--- NOTE | 2020-07-03 08:21 | PC.NURSE ---
Contacted Dr. Ferrari's office about consult on this pt. Stated he is aware and would probably be after his surgeries this AM.
--- NOTE | 2020-07-03 12:36 | PC.NURSE ---
Received call from that no beds are available at this time
--- NOTE | 2020-07-03 16:12 | PC.NURSE ---
Pt was up to the chair this morning returning to bed at approx 1600. Dr Ferrari rounded on him and stated to DC patient with harriet and have him f/u with his office next Friday. Appt made for 07/10 @ 1330. Harriet is currently to bedside draining straw colored urine. 800 mls out so far. He ambulates with standby assist and a walker, tolerates well. He denies any pain, no complaints at all this shift. Will continue to monitor.
--- NOTE | 2020-07-03 16:58 | HMH.CONS ---
*Admission Date: 07/01/20 *Reason for consult:: Urinary retention/bilateral hydronephrosis *History of present illness: Patient is a 74-year-old white male who came into the emergency room 2 days ago with complaints of right lower quadrant abdominal pain that radiated to his right groin and testicle. States that the pain is been ongoing for 10 days. States the pain is dull and he had some associated dysuria and hesitancy. He denies any nausea vomiting fevers or chills or hematuria. He does have a history of lower urinary tract symptoms and was placed on tamsulosin by his primary care physician in [place]. His creatinine on admission was 2.1 and that is normalized to 0.9 with Daniels catheter. His white count on admission was 17,000 and this has normalized to 10,000. CT scan was performed at admission and showed a markedly distended urinary bladder with bilateral hydroureteronephrosis without evidence of stones. He also had a forniceal rupture resulting in right retroperitoneal urinoma. He also had a large right-sided pleural effusion. Noted patient's PSA was drawn and is elevated to 26 but this may be artificial due to his urinary retention. Urine culture is negative. Patient appears comfortable today and his urine is clear. 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 [facility] History Medical History: Denies:: Atrial Fibrillation, Cancer, Congestive Heart Failure, Diabetes Mellitus Type 1, Diabetes Mellitus Type 2, Kidney Stones, Urinary Tract Infection *Have you ever received a pneumonia vaccine?: No *Have you received a flu vaccine this season?: Yes Other Medical History: Denies: Hypothyroidism, Thyroid Disease Laterality Cases: Left: Other (left chest lesion from injury age 14) Other Surgeries: Yes: Hernia Repair (right groin) - *Social History Last grade of school completed: Some college Smoking Status: Never smoker Alcohol Intake: never *Occupational Status:: retired ([place] issues in [facility]. 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 Mother with osteoarthritis.), Cancer (Sister with breast cancer), no Thyroid Disorder Review of Systems - Review of Systems Review of systems:: pertinent systems reviewed and negative unless documented below - *Neurologic Denies abnormal walking, Denies behavioral changes, Denies dizziness Meds Home Medications Medication Instructions Recorded Confirmed Type Glucosamine/D3/Boswellia Mel 1 each PO DAILY 07/01/20 07/01/20 History [Osteo Bi-Flex Tablet] Mv-Mn/Folic Acid/Lutein/Rjd425 1 each PO DAILY 07/01/20 07/01/20 History [Mens Multivit High Potency Tab] [place]-3 Fatty Acids/Fish Oil 1 each PO DAILY 07/01/20 07/01/20 History [[place] 3 1,000 mg Softgel] Tamsulosin HCl 0.4 mg PO DAILY 07/01/20 07/01/20 History Ciprofloxacin HCl [Ciprofloxacin 500 mg PO BID 07/02/20 07/02/20 History 500mg Tab] Allergies Allergy/AdvReac Type Severity Reaction Status Date / Time acetaminophen [From Lortab] Allergy Verified 07/01/20 16:06 codeine Allergy Verified 07/01/20 16:06 hydrocodone [From Lortab] Allergy Verified 07/01/20 16:06 Exam Vital signs and Labs for Last 24 Hours: Temp Pulse Resp BP Pulse Ox 98.2 F 62 20 123/74 99 07/03/20 15:08 07/03/20 15:08 07/03/20 15:08 07/03/20 15:08 07/03/20 15:08 Laboratory Results - last 24 hr 07/03/20 06:12: WBC 10.5, RBC 4.21 L, Hgb 12.6 L, Hct 38.4 L, MCV 91.2, MCH 30.1, MCHC 33.0, RDW 13.4, Plt Count 509 H, MPV 7.4, Neut % (Auto) 73.9, Lymph % (Auto) 19.1, Holmes % (Auto) 4.5, Eos % (Auto) 2.0, Baso % (Auto) 0.5, Neut # (Auto) 7.8, Lymph # (Auto) 2.0, Holmes # (Auto) 0.5, Eos # (Auto) 0.2, Baso # (Auto) 0.1 07/03/20 06:12: Sodium 137, Potassium 4.1, Chloride
[2020-07-04] VITALS: BP 164/94; PULSE 67; PULSE 70; RESP 17; TEMP 36.7; O2SAT 99
[2020-07-04 04:00] VITALS: BP 137/84; PULSE 60; PULSE 73; RESP 17; TEMP 36.7; O2SAT 94
[2020-07-04 05:00] VITALS: BMI 24.5
[2020-07-04 07:39] VITALS: BP 134/87; PULSE 74; RESP 20; TEMP 36.6; O2SAT 97
[2020-07-04 08:00] VITALS: PULSE 80
--- NOTE | 2020-07-04 09:22 | P.PN_ITS ---
Internal Medicine - PN: Subj *Date: 07/04/20 *Time: 09:22 Interval history: Patient states he is doing fine. He does not feel that during the night due to being out of the hospital. He is eating without problems. Daniels catheter has been draining without problems. Bowels did move yesterday. Patient was seen by Dr. Ferrari yesterday p.m. he noted patient CT scan showed distended bladder and bilateral hydroureteronephrosis indicating significant bladder outlet obstruction With resolution of the problem on a repeat CT scan Also with improvement in the bladder hydronephrosis as well as the urinoma formation. He recommended going home with a Daniels catheter to allow his bladder to rest for a few days with follow-up in about a week with him at which time plan for cystoscopy to evaluate his lower tracts. Exam Vital signs and Labs for Last 24 Hours: Temp Pulse Resp BP Pulse Ox 98 F 74 20 134/87 97 07/04/20 07:39 07/04/20 07:39 07/04/20 07:39 07/04/20 07:39 07/04/20 07:39 I & O for Last 24 hours: Intake & Output 07/01/20 07/02/20 07/03/20 07/04/20 11:59 11:59 11:59 11:59 Intake Total 611 / 611 1916 / 1916 2298 / 2298 Output Total 5600 / 5600 2250 / 2250 1400 / 1400 Balance -4989 / -4989 -334 / -334 898 / 898 Weight 161 lb 4 oz 172 lb 1 oz 166 lb 2 oz Microbiology Reports for the Last 24 Hours: Microbiology 07/01/20 17:04 Urine,Catheterized Urine Culture - Final NO GROWTH AFTER 48 HOURS 07/01/20 21:20 Blood Blood Culture - Preliminary NO GROWTH AFTER 48 HOURS 07/01/20 21:20 Blood Blood Culture - Preliminary NO GROWTH AFTER 48 HOURS - Constitutional no acute distress - *Routine Respiratory Exam Present: CTA bilaterally (Anteriorly and posteriorly) - *Routine Cardiovascular Exam Present: RRR - *Routine Abdominal Exam Present: soft, normoactive bowel sounds. Absent: tenderness, distended - *Routine Extremities Exam Absent: edema, calf tenderness - *Routine Neurological Exam Present: alert, oriented X3 Assessment and Plan (1) Acute urinary retention Current visit: Yes Status: Acute Category: Medical Code(s): R33.8 - Other retention of urine (2) Partial rupture of ureteropelvic junction (UPJ) Current visit: Yes Status: Acute Category: Medical Code(s): N28.89 - Other specified disorders of kidney and ureter (3) Paraureteric urinoma Current visit: Yes Status: Acute Category: Medical Code(s): N28.89 - Other specified disorders of kidney and ureter (4) PAC (premature atrial contraction) Current visit: Yes Status: Acute Category: Medical Code(s): I49.1 - Atrial premature depolarization (5) Hyponatremia Current visit: Yes Status: Acute Category: Medical Code(s): E87.1 - Hypo- osmolality and hyponatremia (6) Acute renal failure Current visit: Yes Status: Acute Qualifiers: Acute renal failure type: with other specified pathological lesion Qualified Code(s): N17.8 - Other acute kidney failure Category: Medical Code(s): N17.9 - Acute kidney failure, unspecified - Assessment and plan all Dx Assessment and Plan for all problems:: Patient to be discharged today with home health.
--- NOTE | 2020-07-04 09:57 | SW/DCPLANNER ---
I have spoke with this patient regarding discharge plans. Patient resides at home with his in [facility]. Patient is willing to accept home health services at this time. Patient will also discharge home with a larios cath. Patient has stated that he request home health services thru [facility]. Patient information will be faxed to [facility] and I will follow up once patient information is reviewed. Patient will discharge home today.
--- NOTE | 2020-07-04 10:16 | P.PN_ITS ---
Internal Medicine - PN: Subj *Date: 07/04/20 *Time: 10:16 Interval history: Denies any problems overnight. His urine is draining well per Daniels catheter. Exam Vital signs and Labs for Last 24 Hours: Temp Pulse Resp BP Pulse Ox 98 F 80 20 134/87 97 07/04/20 07:39 07/04/20 08:00 07/04/20 07:39 07/04/20 07:39 07/04/20 07:39 I & O for Last 24 hours: Intake & Output 07/01/20 07/02/20 07/03/20 07/04/20 23:59 23:59 23:59 23:59 Intake Total 1966 / 1966 1639 / 1639 1220 / 1220 Output Total 3500 / 4550 3700 / 3700 1450 / 1450 600 / 600 Balance -3500 / -4550 -1734 / -1734 189 / 189 620 / 620 Weight 77.621 kg 73.142 kg 78.046 kg 75.353 kg Microbiology Reports for the Last 24 Hours: Microbiology 07/01/20 17:04 Urine,Catheterized Urine Culture - Final NO GROWTH AFTER 48 HOURS 07/01/20 21:20 Blood Blood Culture - Preliminary NO GROWTH AFTER 48 HOURS 07/01/20 21:20 Blood Blood Culture - Preliminary NO GROWTH AFTER 48 HOURS Narrative: Well-nourished white male in no apparent distress Pupils equal round react light Head is normocephalic Neck is symmetric Normal respiratory effort Abdomen normal visual inspection Alert and oriented x3 Assessment and Plan (1) Acute urinary retention Current visit: Yes Status: Acute Category: Medical Code(s): R33.8 - Other retention of urine 74-year-old white male with CT findings of bladder distention, bilateral hydronephrosis and a right forniceal rupture. These findings were improved on a repeat CT scan after bladder decompression with a Daniels catheter. Patient gives a history of some mild lower urinary tract symptoms. Recommendation is to go home with the Daniels catheter and I will see back in 1 week for cystoscopic evaluation. He should continue the tamsulosin at discharge. Catheter care to be discussed with patient and nursing staff. (2) Partial rupture of ureteropelvic junction (UPJ) Current visit: Yes Status: Acute Category: Medical Code(s): N28.89 - Other specified disorders of kidney and ureter (3) Paraureteric urinoma Current visit: Yes Status: Acute Category: Medical Code(s): N28.89 - Other specified disorders of kidney and ureter (4) PAC (premature atrial contraction) Current visit: Yes Status: Acute Category: Medical Code(s): I49.1 - Atrial premature depolarization (5) Hyponatremia Current visit: Yes Status: Acute Category: Medical Code(s): E87.1 - Hypo- osmolality and hyponatremia (6) Acute renal failure Current visit: Yes Status: Acute Qualifiers: Acute renal failure type: with other specified pathological lesion Qualified Code(s): N17.8 - Other acute kidney failure Category: Medical Code(s): N17.9 - Acute kidney failure, unspecified
--- NOTE | 2020-07-04 10:37 | HMH.PHAINT ---
DISCHARGE COUNSELING COMPLETED ON PATIENT. NO NEW PRESCRIPTIONS AT THIS TIME. PATIENT IS TO CONTINUE ALL HOME MEDICATIONS WITH THE EXCEPTION OF CIPROFLOXACIN. PATIENT VERBALIZED UNDERSTANDING AND HAD NO QUESTIONS AT THIS TIME. -KINGA ANTOINE, ADRIENNED
--- NOTE | 2020-07-04 11:47 | PC.NURSE ---
THIS RN PROVIDED CATHETER CARE TEACHING AND CATHETER CARE HANDOUT. THIS RN PROVIDED CASTILE SOAP WIPES AND DEMONSTRATED USE FOR PATIENT TO KEEP CATHETER CLEAN. THIS RN OFFERED PATIENT A LEG BAG FOR DOUGHERTY, PATIENT REFUSED. THIS RN OFFERED TO TEACH PATIENT HOW TO TAKE BAG OFF TO CLEAN, PATIENT REFUSED AND STATED, I WILL LET HOME HEALTH DEAL WITH THAT. NO OTHER CONCERNS AT THIS TIME.
--- NOTE | 2020-07-05 08:13 | HMH.DCSUM ---
General - General Admission date:: 07/01/20 Discharge date: 07/04/20 HPI HPI: This 74-year-old white male was admitted from the emergency room at [facility]. He presented with complaints of right sided abdominal pain. He has been followed over the past several weeks by a provider by the name of Belén Reyes in [facility], and has been treated for urinary problems he states. He has had progressive difficulty in urinating. He passes small amounts of water and then feels that he must urinate again. He has had no fever. He has had no vomiting, he has had no diarrhea. His discomfort became great today and he presented in the emergency room. There a CT revealed urinary obstruction with massive dilatation of the bladder plus evidence of a rupture of the ureter on the right with a urinoma. Upon bladder catheterization he was relieved of 2500 cc of urine. He states that at this time he feels much improved with much less pain on the right. Dr. Lawrence in the emergency room made contact with the [facility] for transfer of this patient, but there was no bed availability at this time. [facility] stated that transfer in the morning was a possibility. Hospital Course Hospital Course: The patient was admitted and received considerable relief with decompression of the urinary bladder. A repeat CT was ordered for the next day and IV antibiotics were initiated. The patient's repeat abdominal/pelvic CT showed that the Daniels catheter had decompressed the primary distended bladder. The hydronephrosis had resolved and the right urinoma had shown market decrease in size. There was a 3.3 cm suspect debris-filled parapelvic cyst inferior to the left renal pelvis and radiology recommended ultrasound follow-up at some point. There was also a moderate right pleural effusion, but it had decreased in size from the previous imaging. A consultation was placed with Dr. Ferrari. There were still no beds available at and as the patient was stable, Dr. Thornton prefer to keep him at [facility]. His PSA did return elevated at 26.8. He was seen by Dr. Ferrari who recommended he go home with a Daniels catheter to allow his bladder to rest for a few days. He would then follow-up with the patient and plan on a cystoscopy to evaluate his lower tracts. The patient's urine and blood cultures returned showing no growth. He was stable to be discharged home with home health and will follow-up with Dr. Ferrari. Objective Vital signs: Temp Pulse Resp BP Pulse Ox 98 F 80 20 134/87 97 07/04/20 07:39 07/04/20 08:00 07/04/20 07:39 07/04/20 07:39 07/04/20 07:39 Narrative: - Constitutional no acute distress, cooperative (Pleasant) - *Routine HEENT Exam Head: Present: normocephalic Eye: Present: PERRL ENT: Present: mucous membranes moist - *Routine Neck Exam Present: trachea midline. Absent: JVD, carotid bruit, tenderness - Routine Chest/Breast/Axilla Exam Chest wall: Absent: tenderness, mass (4 cm scar below the left breast) - *Routine Respiratory Exam Present: CTA bilaterally. Absent: respiratory distress - *Routine Cardiovascular Exam Present: irregular rhythm (EKG was normal sinus but he seems to be having ectopics at time of exam) Comments: Repeat EKG confirms atrial ectopics. - *Routine Abdominal Exam Present: soft, tenderness (He has rather minimal tenderness on the right side.). Absent: distended, rebound, guarding - *Routine Rectal Exam Patient deferred: digital exam (Deferred at this time. He has catheter in place.) - *Routine Exam Scrotal: Absent: swelling, tenderness, mass (Left testicle is small), hernia Groin: Absent: inguinal hernia - *Routine Extremities Exam Absent: edema, joint swelling (Arthritic change) - *Routine Skin Exam Present: intact, normal turgor. Absent: mottling, jaundice - *Routine Neurological Exam Present: alert, oriented X3. A
== END 2020-07-04 11:43 | disposition home health service (06) | DRG 699 ==
LOC: ER 18:46 → 2ND 21:40
PROVIDERS: Admitting Provider Family Medicine; Emergency Provider Emergency Medicine; PCP Family Medicine; Visit Provider Family Medicine
DX: N28.89 Other specified disorders of kidney and ureter (principal); E87.1 Hypo-osmolality and hyponatremia; N13.0 Hydronephrosis with ureteropelvic junction obstruction; N17.9 Acute kidney failure, unspecified; N36.8 Other specified disorders of urethra; E03.9 Hypothyroidism, unspecified; I49.1 Atrial premature depolarization; Z88.5 Allergy status to narcotic agent; Z88.8 Allergy status to other drugs, medicaments and biological substances; Z79.899 Other long term (current) drug therapy
CPT/HCPCS: 36415; 74176; 80048; 80053; 81001; 83605; 83690; 83930; 85007; 85025; 87040; 87086; 90732; 93005; 96365; 99285; G0103; J1335

== ENCOUNTER 2020-07-11 00:06 | Emergency (ER) | payer MEDICARE, SELFPAY ==
[2020-07-11 00:29] VITALS: BP 120/85; PULSE 96; RESP 16; TEMP 36.7; O2SAT 99; BMI 25.1
--- NOTE | 2020-07-11 00:35 | HMH.EDUROGM ---
ED Disposition Clinical Impression: Acute urinary retention Disposition: Home, Self-Care Condition on Discharge: Good Instructions: DI for Urinary Retention in Men Additional Instructions: call dr lutz in am Referrals: Belén Reyes DO [Primary Care Provider] - Otilio Lutz MD [Staff Physician] - - Critical Care Critical Care Time: No Attestation: On 07/11/20, the high probability of a clinically significant, sudden or life threatening deterioration of the following system(s) required my full and direct attention, intervention and personal management. The time I documented below is in addition to time spent performing reported procedures but includes the following listed in this critical care notation. Medical Decision Making - Medical Records Medical records reviewed: Yes: I reviewed the patient's medical records. - Thad Inquiry Pt receiving controlled substance: No Vital Signs: 07/11/20 00:29 Temperature 98.1 F Temperature Source Oral Pulse Rate [Right Brachial] 96 H Respiratory Rate 16 Blood Pressure [Right Arm] 120/85 Blood Pressure Mean [Right Arm] 96 Blood Pressure Source [Right Arm] Automatic Cuff Blood Pressure Position [Right Arm] Sitting 02 Sat by Pulse Oximetry 99 Oxygen Delivery Method Room Air Male Urogenital HPI - General Chief complaint: Urogenital-Male Stated complaint: Unable to void Time Seen by Provider: 07/11/20 00:35 Mode of Arrival: Ambulatory Source of Information: Patient, Medical Record Limitations: No Limitations Description of Symptoms (Recalled from ER Triage Doc. by RN): Patient reports he seen Dr. Lutz today around 1300 today and hasnt been able to void since then. - History of Present Illness HPI Narrative: pt with diff urinating and has seen dr nelda BLACK[place]URN Complaint: other (inabilty to urinate ) Onset (ago): hour(s) Duration: intermittent Severity: moderate Reports: urinary retention - Related Data Home Medications Medication Instructions Recorded Confirmed Glucosamine/D3/Boswellia Mel 1 each PO DAILY 07/01/20 07/10/20 [Osteo Bi-Flex Tablet] Mv-Mn/Folic Acid/Lutein/Mku085 1 each PO DAILY 07/01/20 07/10/20 [Mens Multivit High Potency Tab] Stella-3 Fatty Acids/Fish Oil 1 each PO DAILY 07/01/20 07/10/20 [Stella 3 1,000 mg Softgel] Tamsulosin HCl 0.4 mg PO DAILY 07/01/20 07/10/20 Allergies Allergy/AdvReac Type Severity Reaction Status Date / Time acetaminophen [From Lortab] Allergy Verified 07/10/20 14:32 codeine Allergy Verified 07/10/20 14:32 hydrocodone [From Lortab] Allergy Verified 07/10/20 14:32 [facility] History - Hepatitis A Screen Drug use history?: No High risk sexual behaviors?: No History of sexually transmitted infection?: No Currently employed?: No Childcare worker?: No Do you have indoor plumbing?: Yes Do you have electricity?: Yes Attestation statement:: This patient has been screened for Hepatitis A risk factors. I have reviewed the patient's past medical history: Yes Medical History: Reports:: Hypertension Denies:: Atrial Fibrillation, Cancer, Congestive Heart Failure, Diabetes Mellitus Type 1, Diabetes Mellitus Type 2, Kidney Stones, Urinary Tract Infection Other Medical History: Reports: Arthritis. Denies: Hypothyroidism, Thyroid Disease Laterality Cases: Left: Other Other Surgeries: Yes: Hernia Repair Amputation: No Fractures: No Comment: Has received injections in his right knee for arthritis. He also has arthritis of the left knee. - Social History Smoking Status: Never smoker Alcohol Intake: never Occupational Status: retired Housing: house Household Members: spouse Family Hx:: No significant family history, Cancer, no Thyroid Disorder ROS Obtained: Yes All systems reviewed & no additional complaints - Constitutional Constitutional: Denies fever(s) - Eyes Eyes: Denies change in vision - ENT Ears, Nose, Mouth, and Throat: Denies sore throat - Cardiovascular Cardiovascular:
[2020-07-11 00:42] VITALS: BP 121/86; PULSE 71; RESP 16; TEMP 36.8; O2SAT 98
== END 2020-07-11 00:45 | disposition home or self-care (01) ==
PROVIDERS: Emergency Provider Emergency Medicine; PCP Family Medicine
DX: N40.1 Benign prostatic hyperplasia with lower urinary tract symptoms (principal); R33.8 Other retention of urine; I10 Essential (primary) hypertension; E03.9 Hypothyroidism, unspecified
CPT/HCPCS: 51702; 99281

== ENCOUNTER → 2020-08-03 10:57 | Outpatient (CLI) | payer MEDICARE, SELFPAY ==
[2020-08-03 13:11] LABS: Coronavirus 19 IgG Antibody Negative (Negative); Coronavirus 19 IgM Antibody Negative (Negative)
[2020-08-03 15:14] LABS: Basophils # 0.1 K/mm3 (0-0.2); Basophils % 0.7 % (0.1-2.0); Eosinophils # 0.3 K/mm3 (0.0-0.4); Eosinophils % 4.1 % (0.1-12.0); Hematocrit 45.6 % (42.0-52.0); Lymphocytes # 1.8 K/mm3 (0.7-4.5); Lymphocytes % 22.2 % (10-50); Mean Corpuscular HGB Conc 32.9 g/dL (31.8-35.4); Mean Corpuscular Hemoglobin 30.6 pg (27.0-31.2); Mean Corpuscular Volume 92.9 fl (80-94); Mean Platelet Volume 9.2 fl (7.4-10.4); Monocytes # 0.5 K/mm3 (0.1-1.0); Neutrophils # 5.3 K/mm3 (1.8-7.8); Platelet Count 235 K/mm3 (142-424); Red Cell Distribution Width 14.4 % (11.5-17.5); White Blood Count 7.9 K/mm3 (4.8-10.8)
[2020-08-03 15:27] LABS: Anion Gap 14.2 mEq/L (5-15); Blood Urea Nitrogen 12 mg/dl (9-20); Calcium 9.5 mg/dl (8.4-10.2); Carbon Dioxide 27 mmol/L (22.0-30.0); Chloride 100 mmol/L (98-107); Estimated Glomerular Filt Rate 94 ml/min (>60); GFR (African American) 114 ML/MIN (>60); Glucose 100 mg/dl (74-100); Potassium 4.2 mmoL/L (3.5-5.1); Sodium 137 mmol/L (136-145)
== END ==
PROVIDERS: Visit Provider Urology
DX: N40.1 Benign prostatic hyperplasia with lower urinary tract symptoms (principal); R33.9 Retention of urine, unspecified; N17.9 Acute kidney failure, unspecified; Z03.818 Encounter for observation for suspected exposure to other biological agents ruled out
CPT/HCPCS: 36415; 80048; 85025; 86328

== ENCOUNTER 2020-08-04 07:03 | Observation (INO) | payer MEDICARE, SELFPAY ==
[2020-08-02 09:12] VITALS: BMI 25.0
[2020-08-04] VITALS (21 sets, daily range): BP systolic 109–149; BP diastolic 55–92; PULSE 58–75; RESP 15–19; TEMP 36.4–43; O2SAT 93–99; BMI 27.0
--- NOTE | 2020-08-04 07:33 | HMH.ANESCL ---
[facility] Anesthesia Checklist - Patient Identification Patient Identification: Arm Band, Verbal (Name & ) - Structural Data Admitted From: Home Planned Operative Procedure/s: TURP Consent for Planned Operative Procedure(s) Verified: Yes Verified Documents: History and Physical - NPO Status Verified Time NPO: 00:00 - Additional verifications Patient : No Anesthesia Reactions: No Hx Blood Transfusions: No Blood Transfusion Reaction: No Cephalosporin Allergy: No Previous Colonoscopy: No - Cardiovascular Assessment Heart Sounds: S1 & S2 Pulse Strength: Baseline Pulse Rhythm: Regular Peripheral Edema: No - Airway Assessment C-Spine Mobility Assessed: Yes TMJ Mobility Assessed: Yes Dentition: Good Dentition - Neurological Assessment Level of Consciousness: Awake, Alert, Appropriate Hx Seizures: No Numbness or tingling in extremities: No - Anesthesia Plan Anesthesia Risk discussed: Yes Anesthesia Plan: Verified ASA Class: II Anesthesia Type: General [facility] History I have reviewed the patient's past medical history: Yes Medical History: Reports:: Hypertension Denies:: Atrial Fibrillation, Cancer, Congestive Heart Failure, Diabetes Mellitus Type 1, Diabetes Mellitus Type 2, Internal Pacemaker, Kidney Stones, MRSA, Seizures, Urinary Tract Infection *Have you ever received a pneumonia vaccine?: Yes *Have you received a flu vaccine this season?: Yes Other Medical History: Reports: Arthritis. Denies: Blood Transfusion Reaction, Hypothyroidism, Thyroid Disease Anesthesia experience/problems:: none Laterality Cases: Left: Other Other Surgeries: Yes: No Previous Surgery, Hernia Repair. No: Pacemaker Amputation: No Fractures: No - *Social History Last grade of school completed: Some college Smoking Status: Never smoker Alcohol Intake: never Substance Use Type: other *Occupational Status:: employed Housing: house Household Members: spouse *Travel in the last 8 weeks: None Family Hx:: No significant family history
--- NOTE | 2020-08-04 10:37 | HMH.ANESI ---
[facility] Anesthesia Record Part I Intake, IV Amount: 400 Estimated blood loss (mL): 5 Urine output (mL): 100 Blood Products used (#): none Blood Pressure: 141/85 SaO2: 94 Pulse Rate: 72 Respiratory Rate: 18 Temperature: 97.7 F Patient is:: Drowsy Stable to PACU at:: 10:31
--- NOTE | 2020-08-04 10:54 | HMH.OPNOTE ---
Date of procedure: 08/04/20 Pre-op Diagnosis:: Urinary retention secondary to BPH Post-op Diagnosis:: Same Procedure performed:: Transurethral resection of the prostate Surgeon:: Otilio Ferrari MD [employer]:: Jah Klein Anesthesia: GETA Estimated blood loss (mL): 5 Clinical Note:: 75-year-old white male with urinary retention secondary to BPH. He has had a Daniels catheter and now for 2 to 3 weeks and presents for prostate resection. Operative findings:: Prostate moderately enlarged and prostatic urethra short. There was more anterior tissue than normal. The bladder showed no evidence of chronic bladder outlet obstructive changes. Operative note:: Patient taken to the operating room after informed consent was obtained. Was placed on the operating table in the supine position and general anesthesia administered. Preoperative antibiotics and sequential compression devices placed. He was then placed into the dorsal lithotomy position and prepped and draped in the standard surgical fashion. The 22 Surinamese cystoscope passed into the urethra into the prostatic urethra which showed some moderate hyperplasia. The prostatic urethra was rather short. The bladder was entered and examined in a systematic fashion. There was no evidence of cellules, diverticula and mild trabeculation was noted. Ureteral orifices in their normal anatomic position. There was a small median lobe noted. The cystoscope removed and our 26 Surinamese resectoscope sheath passed into the urethra and into the bladder without difficulty. The bladder neck was resected in a circumferential fashion. Floor of the prostatic urethra was then resected back to leave the room. The left side the prostate was resected in a counterclockwise fashion back to the room. The right side the prostate was resected in a clockwise fashion back to leave the room. Anterior portion of the prostate showed a little more tissue that dropped down into the prostatic urethra then normal and this was resected adequately. Apical tissue was resected as stage III of the TURP. All the prostatic chips were removed and hemostasis achieved. The scope removed and a 22 Surinamese three-way Daniels catheter passed into the bladder without difficulty. 30 cc placed into the balloon and CBI began. Patient tolerated the procedure well there are no complications. The prostatic chips were sent off as a specimen. Condition: stable Disposition: PACU Specimens:: Prostatic tissue Complications:: None
--- NOTE | 2020-08-04 11:05 | HMH.PHAINT ---
MEDICATION RECONCILIATION COMPLETED ON PATIENT USING EXTERNAL FILL HISTORY FROM PHARMACY. -KINGA ANTOINE, ADRIENNED
--- NOTE | 2020-08-04 11:06 | P.CONPHA_ITS ---
[facility] Pharm[facility] VTE Monitoring - Patient Demographics Admission date: 08/04/20 Report Date: 08/04/20 Time: 11:06 Allergies/Adverse Reactions: Patient Allergies acetaminophen [From Lortab] Allergy (Verified 08/02/20 09:08) codeine Allergy (Verified 08/02/20 09:08) hydrocodone [From Lortab] Allergy (Verified 08/02/20 09:08) Height: 1.75 m Weight: 76.657 kg - Prophylaxis VTE Prophylaxis Ordered?: Yes Types of VTE Prophylaxis: IPCS Thigh High Location of Applied Device: Bilateral Lower Extremeties
--- NOTE | 2020-08-04 11:40 | HMH.ANESII ---
[facility] Anesthesia Record Part II Discharge Time: 11:01 Destination: Medical Surgical Department PACU nurse assessment reviewed?: Yes Patient Condition:: Good Anesthesia Complications:: None Swallowing reflex intact?: Yes Cyanosis?: No Blood Pressure: 141/85 Pulse Rate: 72 Temperature: 97.7 F Mental Status: Alert & Oriented Pain level:: 1 Nausea and/or vomitting:: None Intake, IV Amount: 25
--- NOTE | 2020-08-04 11:52 | PC.NURSE ---
per Trever Preciado RN, dr. lutz wants NS CDI after the sterile water bag from surgery is finished.
--- NOTE | 2020-08-04 11:52 | PC.NURSE ---
per Trever Preciado RN, dr. lutz wants NS CDI.
--- NOTE | 2020-08-04 17:43 | PC.NURSE ---
pt has done well since arrival to floor. small amount of blood noted at the insertion site of catheter when pt got up to the bsc. no pain voiced. CDI going right now. output color is pale yellow, Vega was at bedside and noted this as well. vss. will cont. to monitor.
--- NOTE | 2020-08-04 19:10 | PC.NURSE ---
report given to corwin
[2020-08-05] VITALS: BP 115/71; PULSE 69; RESP 14; TEMP 36.4; O2SAT 97
--- NOTE | 2020-08-05 03:45 | PC.NURSE ---
PT. HAS NOT C/O PAIN, N/V/D OR SOA. PT. HAD SOME MILD BLEEDING AFTER TRANSFERRING TO/FROM BSC, BLEEDING STOPPED ONCE PT. TRANSFERRED BACK TO BED. FC DRAINING BRIGHT YELLOW URINE.
[2020-08-05 04:00] VITALS: BP 121/74; PULSE 67; RESP 14; TEMP 36.4; O2SAT 96
[2020-08-05 05:02] VITALS: BMI 25.4
--- NOTE | 2020-08-05 06:11 | PC.NURSE ---
Addendum entered by Jane Jorgensen RN 08/05/20 06:36: 0600- PT. C/O PULLING WHEN STANDING TO USE THE BSC; RETAPED CATHETER TUBING TO LEG AND PT. REPORTED RELIEF; NO BLEEDING AFTER TRANSFERRING FROM BED/BSC. 0630- COLOR CHANGE IN URINE: LIGHT RED AT THIS TIME; NO VISIBLE CLOTS NOTED AT THIS TIME Original Note: CBI IRRIGATION STOPPED AT THIS TIME
[2020-08-05 06:54] LABS: Basophils % 0.4 % (0.1-2.0); Eosinophils # 0.1 K/mm3 (0.0-0.4); Eosinophils % 0.9 % (0.1-12.0); Hematocrit 41.6 % (42.0-52.0); Hemoglobin 13.8 g/dL (14.1-18.0); Lymphocytes % 21.1 % (10-50); Mean Corpuscular Hemoglobin 30.8 pg (27.0-31.2); Mean Corpuscular Volume 93.1 fl (80-94); Mean Platelet Volume 7.7 fl (7.4-10.4); Monocytes # 0.6 K/mm3 (0.1-1.0); Monocytes % 6.4 % (1.7-9.3); Neutrophils # 6.9 K/mm3 (1.8-7.8); Neutrophils % 71.3 % (37.0-80.0); Platelet Count 177 K/mm3 (142-424); Red Blood Count 4.47 M/mm3 (4.60-6.20); Red Cell Distribution Width 14.2 % (11.5-17.5); White Blood Count 9.7 K/mm3 (4.8-10.8)
[2020-08-05 07:02] LABS: Chloride 107 mmol/L (98-107); Sodium 139 mmol/L (136-145)
[2020-08-05 07:03] LABS: Potassium 3.8 mmoL/L (3.5-5.1)
[2020-08-05 07:05] LABS: Blood Urea Nitrogen 10 mg/dl (9-20); Creatinine Clearance Estimated 69 mL/min (50-200); Estimated Glomerular Filt Rate 110 ml/min (>60); GFR (African American) 133 ML/MIN (>60)
[2020-08-05 07:06] LABS: Anion Gap 9.8 mEq/L (5-15); Calcium 8.9 mg/dl (8.4-10.2); Carbon Dioxide 26 mmol/L (22.0-30.0); Glucose 103 mg/dl (74-100)
[2020-08-05 07:47] VITALS: BP 148/89; PULSE 55; RESP 18; TEMP 36.5; O2SAT 99
--- NOTE | 2020-08-05 09:07 | P.PN_ITS ---
Internal Medicine - PN: Subj *Date: 08/05/20 *Time: 09:07 Interval history: Patient denies any abdominal pain. Has good appetite and is tolerating regular diet. Vital signs are stable he is afebrile urine is slightly pink off of CBI Exam Vital signs and Labs for Last 24 Hours: Temp Pulse Resp BP Pulse Ox 97.7 F 55 L 18 148/89 H 99 08/05/20 07:47 08/05/20 07:47 08/05/20 07:47 08/05/20 07:47 08/05/20 07:47 Laboratory Results - last 24 hr 08/05/20 06:31: WBC 9.7, RBC 4.47 L, Hgb 13.8 L, Hct 41.6 L, MCV 93.1, MCH 30.8, MCHC 33.0, RDW 14.2, Plt Count 177, MPV 7.7, Neut % (Auto) 71.3, Lymph % (Auto) 21.1, Randolph % (Auto) 6.4, Eos % (Auto) 0.9, Baso % (Auto) 0.4, Neut # (Auto) 6.9, Lymph # (Auto) 2.0, Randolph # (Auto) 0.6, Eos # (Auto) 0.1, Baso # (Auto) 0.0 08/05/20 06:31: Sodium 139, Potassium 3.8, Chloride 107, Carbon Dioxide 26, Anion Gap 9.8, BUN 10, Creatinine 0.70, Estimated Creat Clear 69, Estimated GFR 110, Est GFR ( Amer) 133, Glucose 103 H, Calcium 8.9 I & O for Last 24 hours: Intake & Output 08/02/20 08/03/20 08/04/20 08/05/20 23:59 23:59 23:59 23:59 Intake Total 2083 1160 / 1160 Output Total 1330 / 1330 Balance 2083 -170 / -170 Weight 76.657 kg 83.064 kg 77.819 kg Narrative: Well-nourished white male in no apparent distress Pupils equal round react to light Head is normocephalic Neck is symmetric Normal respiratory effort Abdomen soft nontender Alert and oriented x3 Assessment and Plan (1) Acute urinary retention Current visit: No Status: Acute Category: Medical Code(s): R33.8 - Other retention of urine Postop day 1 status post TURP. Patient's urine is pink off of the CBI. He is t o be discharged home today with his Daniels catheter. We discussed pushing fluids and restricting any strenuous activity. I will see him back on Friday for a voiding trial.
== END 2020-08-05 11:19 | disposition home or self-care (01) ==
LOC: 2ND 07:03
PROVIDERS: Admitting Provider Urology; PCP Family Medicine; Visit Provider Urology
PROC: 0VT08ZZ Resection of Prostate, Via Natural or Artificial Opening Endoscopic (ICD-10-PCS; CPT 52601; principal; 2020-08-04 09:00)
DX: N40.1 Benign prostatic hyperplasia with lower urinary tract symptoms (principal); R33.8 Other retention of urine; I10 Essential (primary) hypertension; Z79.899 Other long term (current) drug therapy
CPT/HCPCS: 52601; 36415; 80048; 85025; 88305; 96374; G0378; J2405

== ENCOUNTER → 2021-09-10 14:47 | Outpatient (CLI) | payer MEDICARE, SELFPAY ==
[2021-09-10 16:13] LABS: Prostate Specific Ag Screen 5.3 ng/ml (0.0-4.0)
== END ==
PROVIDERS: Visit Provider Urology
DX: Z12.5 Encounter for screening for malignant neoplasm of prostate (principal)
CPT/HCPCS: 36415; G0103

== ENCOUNTER → 2022-10-03 11:19 | Outpatient (CLI) | payer MEDICARE, SELFPAY ==
[2022-10-03 13:10] LABS: Prostate Specific Ag Screen 6.3 ng/ml (0.0-4.0)
== END ==
PROVIDERS: PCP Family Medicine; Visit Provider Urology
DX: Z12.5 Encounter for screening for malignant neoplasm of prostate (principal)
CPT/HCPCS: 36415; G0103

== ENCOUNTER 2022-12-01 23:40 | Emergency (ER) | payer MEDICARE, SELFPAY ==
[2022-12-01 23:35] VITALS: BP 136/94; PULSE 75; O2SAT 100
[2022-12-01 23:40] VITALS: BP 136/94; BP 159/91; PULSE 61; PULSE 64; RESP 16; TEMP 36.9; O2SAT 100; O2SAT 99; BMI 28.0
--- NOTE | 2022-12-01 23:49 | CT_ITS ---
PROCEDURE INFORMATION: Exam: CT Abdomen And Pelvis With Contrast Exam date and time: 12/02/2022 12:55 AM Age: 77 years old Clinical indication: Abdominal pain; Additional info: Rlq abdominal pain TECHNIQUE: Imaging protocol: Computed tomography of the abdomen and pelvis with contrast. Radiation optimization: All CT scans at this facility use at least one of these dose optimization techniques: automated exposure control; mA and/or kV adjustment per patient size (includes targeted exams where dose is matched to clinical indication); or iterative reconstruction. Contrast material: ISOVUE; Contrast volume: 75 ml; Contrast route: IV; COMPARISON: CT ABDOMEN PELVIS WO CON 07/02/2020 7:52 AM FINDINGS: Lungs: Mild atelectasis in the lung bases. Heart: Heart size normal. There is moderate calcification of the aortic valve. Coronary arteries: Mild coronary artery calcification. Mediastinal space: The visualized distal esophagus is largely contracted without gross abnormality. Liver: Mild fatty infiltration of the liver. Normal contour. Subcentimeter cyst in the left hepatic lobe which does not require further assessment. No intrahepatic biliary ductal dilatation. Gallbladder and bile ducts: Normal. No calcified stones. No ductal dilation. Pancreas: Normal. No inflammatory changes or ductal dilation. Spleen: Normal. No splenomegaly. Adrenal glands: Normal. No adrenal mass. Kidneys and ureters: No acute abnormalities. No hydronephrosis or hydroureter. No urinary tract stones are identified. Peripelvic cyst versus extrarenal pelvis adjacent to the right renal hilum is decreased in size felt to be an incidental configuration. Probable peripelvic cyst inferior to the left renal pelvis is decreased in size. Stomach and bowel: Stomach is moderately fluid distended. There is a moderate amount of stool distributed in the mid and proximal colon suggesting possible constipation. Appendix: The appendix is normal in caliber and demonstrates no evidence of appendicitis. Intraperitoneal space: No free fluid or air. Vasculature: Moderate atherosclerotic aortoiliac calcification without aneurysm. Lymph nodes: No adenopathy. Urinary bladder: Mild urinary bladder wall thickening with mild adjacent stranding. Correlate with UA for evidence of cystitis. Reproductive: Moderate prostate enlargement. Central low-density in the prostate probably represents prior TURP, correlate with procedural history. Bones/joints: No acute osseous abnormalities. Osteopenia. Chronic asymmetric sclerosis and trabecular thickening throughout the left hemipelvis consistent with changes of chronic Paget's disease again noted. Soft tissues: Moderate diffuse small bowel dilatation/fluid distension, with transition point to nondilated distal small bowel located at the right inguinal hernia, with herniation of a short segment of distal small bowel. No evidence of perforation or abscess. The herniated bowel segment demonstrates appropriate mucosal enhancement without definite features of strangulation although there is some reactive fluid in the hernia sac as well, correlate clinically. Bilateral inguinal hernias, containing fluid and fat on the left with no left-sided bowel herniation. On the right there is a herniated short segment small bowel loop with evidence of associated small bowel obstruction. IMPRESSION: 1. Small-bowel obstruction, with transition point at the right inguinal hernia where there is short segment herniation of small bowel. No perforation. 2. Moderate colonic stool. 3. Mild urinary bladder wall thickening and slight adjacent stranding, correlate with UA for evidence of
[2022-12-02] VITALS (15 sets, daily range): BP systolic 113–172; BP diastolic 72–94; PULSE 57–72; RESP 18–22; TEMP 36.8; O2SAT 95–100
[2022-12-02 00:08] LABS: Basophils % 0.4 % (0.1-2.0); Eosinophils % 0.3 % (0.1-12.0); Hematocrit 47.2 % (42.0-52.0); Hemoglobin 15.7 g/dL (14.1-18.0); Lymphocytes # 0.9 K/mm3 (0.7-4.5); Lymphocytes % 10.8 % (10-50); Mean Corpuscular HGB Conc 33.1 g/dL (31.8-35.4); Mean Corpuscular Hemoglobin 31.2 pg (27.0-31.2); Mean Corpuscular Volume 94.2 fl (80-94); Mean Platelet Volume 8.4 fl (7.4-10.4); Monocytes # 0.4 K/mm3 (0.1-1.0); Monocytes % 4.9 % (1.7-9.3); Neutrophils # 6.6 K/mm3 (1.8-7.8); Neutrophils % 83.6 % (37.0-80.0); Platelet Count 263 K/mm3 (142-424); Red Blood Count 5.02 M/mm3 (4.60-6.20); Red Cell Distribution Width 13.2 % (11.5-17.5); White Blood Count 7.9 K/mm3 (4.8-10.8)
[2022-12-02 00:08] LABS: Microscopic, Urine URINE MICROSCOPIC (MICROSCOPIC)
[2022-12-02 00:18] LABS: Chloride 100 mmol/L (98-107); Potassium 3.9 mmoL/L (3.5-5.1); Sodium 136 mmol/L (136-145)
[2022-12-02 00:21] LABS: Alanine Aminotransferase 26 U/L (12-78); Albumin Level 4.5 g/dl (3.5-5.0); Albumin/Globulin Ratio 1.7 (1.1-1.8); Alkaline Phosphatase 74 U/L (38-126); Anion Gap 13.9 mEq/L (5-15); Aspartate Amino Transferase 31 U/L (17-59); Bilirubin,Total 0.9 mg/dl (0.2-1.3); Blood Urea Nitrogen 15 mg/dl (9-20); Calcium 9.3 mg/dl (8.4-10.2); Carbon Dioxide 26 mmol/L (22.0-30.0); Creatinine Clearance Estimated 74 mL/min (50-200); Estimated Glomerular Filt Rate 82 ml/min (>60); GFR (African American) 99 ML/MIN (>60); Globulin 2.6 g/dL (1.3-3.2); Glucose 119 mg/dl (74-100); Total Protein,Serum 7.1 g/dl (6.3-8.2)
[2022-12-02 00:25] LABS: Appearance,Urine CLEAR (Clear); Bilirubin,Urine Negative (Negative); Blood, Urine Negative (Negative); Color,Urine YELLOW (Yellow); Glucose,Urine (UA) Negative (Negative); Ketones,Urine 3+ (Negative); Leukocyte Esterase,Urine Negative (Negative); Nitrate,Urine Negative (Negative); PH,Urine 6.5 (5.0-8.5); Protein,Urine TRACE (Negative); Urobilinogen,Urine 0.2 EU/dl (0.2)
--- NOTE | 2022-12-02 01:18 | HMH.EDABDPAI ---
Discharge Plan Disposition Patient Disposition: Admitted as Observation Chief Complaint: Abdominal Pain Prescriptions Prescriptions: No Action omega-3 fatty acids-fish oil 1 EACH capsule 1 each PO DAILY [id number] 1 EACH tablet 1 each PO DAILY [id number] serr 1 EACH tablet 1 each PO DAILY acetaminophen [Tylenol] 325 mg Tablet 500 mg PO TID PRN (Reason: Pain) Referrals Follow up/Referrals: Provider,Referral, MD [Referring] - See instructions Clinical Impressions Clinical Impression: Small bowel obstruction, Inguinal hernia of right side with obstruction Instructions Patient Instructions: DI for Acute Abdominal Pain Discharge ED Provider: Martínez Smallwood Abdominal Pain HPI General Chief Complaint: Abdominal Pain Stated Complaint: R testicular pain Time Seen by Provider: 12/02/22 01:18 Mode of Arrival: EMS Source of Information: Patient, EMS and Medical Record Limitations: No Limitations Description of Symptoms (Recalled from ER Triage Doc. by RN): Pt brought in via EMS for RLQ abd pain that radiates into his groin. Pt as c/o indigestion since this afternoon [place]. Pt denies any cp, soa, dizziness, diarrhea, or fevers. He does endorse vomiting once today and continued nausea since. History of Present Illness HPI narrative: progressive rt inguinal pain with vomiting which started today - MD complaint: abdominal pain Onset (ago): hour(s) Consistency: intermittent Location: RLQ Severity: moderate Related Data Home Medications Medication Instructions Recorded Confirmed glucosamine [id number]-[id number] 1 each PO DAILY JOINT 07/01/20 12/02/22 katya 1,500 mg-400 unit-100 mg tablet [id number] 200 mcg-lycop 1 each PO DAILY Supplement 07/01/20 12/02/22 175 mcg-lutei 250 mcg-herb 178 tablet omega-3 fatty acids-fish oil 300 1 each PO DAILY Supplement 07/01/20 12/02/22 mg-1,000 mg capsule acetaminophen 325 mg tablet 500 mg PO TID PRN Pain 12/02/22 12/02/22 (Tylenol) Allergies Allergy/AdvReac Type Severity Reaction Status Date / Time acetaminophen [From Lortab] Allergy Verified 08/20/22 10:49 codeine Allergy Verified 08/20/22 10:49 hydrocodone [From Lortab] Allergy Verified 08/20/22 10:49 PFSH PFSH Disclaimer: The information contained in this section may have been updated after the patient was seen, as this information can be updated by other users. Medical History (Updated 12/02/22 @ 02:47 by Martínez Smallwood MD) BPH loc w urin obs/LUTS Surgical History (Updated 08/20/22 @ 10:50 by SOO Lara) S/P TURP (status post transurethral resection of prostate) Social History Smoking Status: Never smoker second hand exposure: No alcohol intake: never substance use type: other current occupational status: retired Travel in the last 8 weeks: None household members: spouse housing: house current occupation: [employer] current occupational exposures/hazards: No caffeine: Yes ROS Obtained: Yes All systems reviewed & no additional complaints except as documented Physical Exam General General appearance: alert Head Head exam: normocephalic Eye Eye exam: Present PERRL and EOMI ENT ENT exam: Present mucous membranes moist Neck Neck exam: Present trachea midline Respiratory Respiratory exam: Absent respiratory distress Cardiovascular Cardiovascular exam: Present regular rate Abdominal Exam Abdominal exam: Present soft, tenderness, diminished bowel sounds and hernia (was able to reduce in ed ); Absent guarding or rebound Abdominal tenderness: Present RLQ and moderate exam: Present normal inspection Extremities Exam Extremities exam: Present full ROM Neurological Exam Neurological exam: Present alert, oriented X3 and CN II-XII intact; Absent motor sensory deficit Psychiatric Psychiatric ex
[2022-12-02 01:56] LABS: Coronavirus 19, PCR Not Detected (NotDetected); Influenza A, PCR Not Detected (NotDetected); Influenza B, PCR Not Detected (NotDetected)
[2022-12-02 01:58] LABS: Amylase 71 U/L (30-110)
[2022-12-02 01:59] LABS: Lipase 66 U/L (23-300)
--- NOTE | 2022-12-02 01:59 | PC.NURSE ---
Dr. Smallwood s/w RUBIAD
[2022-12-02 02:05] LABS: Lactic Acid 0.8 mmol/L (0.7-2.1)
--- NOTE | 2022-12-02 02:24 | PC.NURSE ---
paged dr garcia @ this time
--- NOTE | 2022-12-02 03:00 | EXP.HP ---
History of Present Illness *Admission Date: 12/02/22 *Reason for visit:: Abdominal Pain *History of present illness: Mr. Bond is a 77-year-old male with a past medical history of BPH, OA and history of right inguinal hernia repair with mesh in 1991. He presented to [facility] due to acute onset of right lower quadrant abdominal pain that occurred approximately 6-8 hours prior to presentation. 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 He reported that at that time he had a bulge in his right lower abdominal quadrant while sitting in his truck, he reports that the bulge went in on its own. . He reports that today that he had the same pain and the bulge in the right lower abdominal quadrant. Today he reports that the bulge in his right lower abdominal quadrant did not go in and was very painful. He presented to the ER for further evaluation. In the ER the patient underwent a CT of the abdomen and pelvis that showed a SBO with a transition point at the right inguinal hernia where there was a short segment of small bowel with no perforation. In the ER the physican was able to reduce the hernia. The patient will be admitted with initial impression of SBO and right inguinal hernia. The ER Physician spoke with Surgery who will see the patient in consult. The plan of care was discussed with the patient in the ER on admission. The patient verbalized understanding and agreement with the plan of care. [facility] Disclaimer: The information contained in this section may have been updated after the patient was seen, as this information can be updated by other users. Medical History BPH (benign prostatic hyperplasia) BPH loc w urin obs/LUTS Inguinal hernia Surgical History S/P TURP (status post transurethral resection of prostate) Social History Smoking Status: Never smoker second hand exposure: No alcohol intake: never substance use type: other current occupational status: retired Travel in the last 8 weeks: None household members: spouse housing: house current occupation: [employer] current occupational exposures/hazards: No caffeine: Yes Review of Systems Review of Systems Review of systems:: pertinent systems reviewed and negative unless documented below Constitutional Constitutional: Reports system reviewed and no additional complaints, except as documented Eyes Eyes: Reports system reviewed and no additional complaints, except as documented ENT Ears, Nose, Mouth, and Throat: Reports system reviewed and no additional complaints, except as documented *Cardiovascular Cardiovascular: Reports system reviewed and no additional complaints, except as documented *Respiratory Respiratory: Reports system reviewed and no additional complaints, except as documented *Gastrointestinal Gastrointestinal: Reports abdominal pain *Genitourinary Genitourinary: Reports system reviewed and no additional complaints, except as documented *Musculoskeletal Musculoskeletal: Reports system reviewed and no additional complaints, except as documented Integumentary/Breasts Skin/Breast: Reports system reviewed and no additional complaints, except as documented *Neurologic Neurologic: Reports system reviewed and no additional complaints, except as documented Psychiatric Psychiatric: Reports system reviewed and no additional complaints, except as documented Endocrine Endocrine: Reports system reviewed and no additional complaints, except as documented Hematologic/Lymphatic Hematologic/Lymphatic: Reports system reviewed and no additional complaints, except as documented Allergic/Immunologic Allergic/Immunologic: Reports system reviewed and no additional complaints, except as documented Meds Home Medications
--- NOTE | 2022-12-02 06:41 | PC.NURSE ---
dr garcia @ bedside
--- NOTE | 2022-12-02 07:24 | EXP.DC.SUM ---
General Admission date:: 12/02/22 Discharge date: 12/02/22 HPI HPI HPI: Mr. Bond is a 77-year-old male with a past medical history of BPH, OA and history of right inguinal hernia repair with mesh in 1991. He presented to [facility] due to acute onset of right lower quadrant abdominal pain that occurred approximately 6-8 hours prior to presentation. 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 He reported that at that time he had a bulge in his right lower abdominal quadrant while sitting in his truck, he reports that the bulge went in on its own. . He reports that today that he had the same pain and the bulge in the right lower abdominal quadrant. Today he reports that the bulge in his right lower abdominal quadrant did not go in and was very painful. He presented to the ER for further evaluation. In the ER the patient underwent a CT of the abdomen and pelvis that showed a SBO with a transition point at the right inguinal hernia where there was a short segment of small bowel with no perforation. In the ER the physican was able to reduce the hernia. The patient will be admitted with initial impression of SBO and right inguinal hernia. The ER Physician spoke with Surgery who will see the patient in consult. The plan of care was discussed with the patient in the ER on admission. The patient verbalized understanding and agreement with the plan of care. Hospital Course Hospital Course Hospital Course: 77-year-old male with past medical history of BPH and h/o right inguinal hernia repair with mesh in 1991 presents due to right lower quadrant pain associated with bulge, CT showed SBO with transition point in the right inguinal hernia where there is short segment of herniation of small bowel with no perforation - SBO -Right inguinal hernia Admitted overnight and monitored. Hernia reduced overnight. Surgery was consulted, recommend close outpatient follow-up to discuss further intervention. Pain resolved with reduction. Allowed to eat. Stable to discharge home with close outpatient follow-up. - Dehydration Dry mucus membranes on exam, Ketones in urine, no lab abnormalities. Rehydrated overnight. Tolerating p.o. intake this morning. Voiding independently. Exam Data for Last 24 hours Vital signs and Labs for Last 24 Hours: Temp Pulse Resp BP Pulse Ox 98.4 F 62 16 147/89 H 98 12/01/22 23:40 12/02/22 02:00 12/01/22 23:40 12/02/22 02:00 12/02/22 02:00 Laboratory Results - last 24 hr 12/01/22 23:46: Urine Color Yellow, Urine Appearance Clear, Urine pH 6.5, Ur Specific [place] 1.020, Urine Protein Trace, Urine Glucose (UA) Negative, Urine Ketones 3+, Urine Blood Negative, Urine Nitrate Negative, Urine Bilirubin Negative, Urine Urobilinogen 0.2, Ur Leukocyte Esterase Negative, Urine RBC None, Urine WBC 3-5, Ur Squamous Epith Cells 3-5, Urine Bacteria None 12/01/22 23:56: WBC 7.9, RBC 5.02, Hgb 15.7, Hct 47.2, MCV 94.2 H, MCH 31.2, MCHC 33.1, RDW 13.2, Plt Count 263, MPV 8.4, Neut % (Auto) 83.6 H, Lymph % (Auto) 10.8, [place] % (Auto) 4.9, Eos % (Auto) 0.3, Baso % (Auto) 0.4, Neut # (Auto) 6.6, Lymph # (Auto) 0.9, [place] # (Auto) 0.4, Eos # (Auto) 0.0, Baso # (Auto) 0.0 12/01/22 23:56: Sodium 136, Potassium 3.9, Chloride 100, Carbon Dioxide 26, Anion Gap 13.9, BUN 15, Creatinine 0.90, Estimated Creat Clear 74, Estimated GFR 82, Est GFR ( Amer) 99, Glucose 119 H, Calcium 9.3, Total Bilirubin 0.9, AST 31, ALT 26, Alkaline Phosphatase 74, Total Protein 7.1, Albumin 4.5, Globulin 2.6, Albumin/Globulin Ratio 1.7 12/02/22 00:00: Amylase 71, Lipase 66 12/02/22 01:45: SARS-CoV-2 (PCR) Not detected, Influenza A Untype (PCR) Not detected, Influenza Type B (PCR) Not detected 12/02/22 01:46: Lactate 0.8 I & O for Last 24 hours: Intake & Output 11/29/22 11/30/22 12/01/22 12/02/22 23:59 23:59 23:59 23:59 Weight 86.183 kg Constitutional C
--- NOTE | 2022-12-02 07:30 | EXP.SURG.CON ---
History of Present Illness *Admission Date: 12/02/22 *Reason for visit:: Right inguinal hernia; small bowel obstruction *History of present illness: This is a 77-year-old gentleman seen in consultation after evaluation emergency department for right inguinal hernia with intermittently-incarcerated small bowel. The patient's hernia was reduced (Dr. Smallwood) in the emergency department overnight. He states that he feels much much better now . Forwarded from admission H&P/emergency department evaluation: Mr. Bond is a 77-year-old male with a past medical history of BPH, OA and history of right inguinal hernia repair with mesh in 1991. He presented to [facility] due to acute onset of right lower quadrant abdominal pain that occurred approximately 6-8 hours prior to presentation. 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 He reported that at that time he had a bulge in his right lower abdominal quadrant while sitting in his truck, he reports that the bulge went in on its own. . He reports that today that he had the same pain and the bulge in the right lower abdominal quadrant. Today he reports that the bulge in his right lower abdominal quadrant did not go in and was very painful. He presented to the ER for further evaluation. In the ER the patient underwent a CT of the abdomen and pelvis that showed a SBO with a transition point at the right inguinal hernia where there was a short segment of small bowel with no perforation. In the ER the physican was able to reduce the hernia. The patient will be admitted with initial impression of SBO and right inguinal hernia. The ER Physician spoke with Surgery who will see the patient in consult. The plan of care was discussed with the patient in the ER on admission. The patient verbalized understanding and agreement with the plan of care. PFSH PFSH Disclaimer: The information contained in this section may have been updated after the patient was seen, as this information can be updated by other users. Medical History BPH (benign prostatic hyperplasia) BPH loc w urin obs/LUTS Inguinal hernia Surgical History S/P TURP (status post transurethral resection of prostate) Social History Smoking Status: Never smoker second hand exposure: No alcohol intake: never substance use type: other current occupational status: retired Travel in the last 8 weeks: None household members: spouse housing: house current occupation: [employer] current occupational exposures/hazards: No caffeine: Yes Review of Systems *Neurologic Neurologic: Reports system reviewed and no additional complaints, except as documented Meds Home Medications and Allergies Home Medications Medication Instructions Recorded Confirmed Type glucosamine RZg-R3-Wyzgasggn 1 each PO DAILY JOINT 07/01/20 12/02/22 History katya 1,500 mg-400 unit-100 mg tablet kyngcwck-ohr-hmdtt 200 mcg-lycop 1 each PO DAILY Supplement 07/01/20 12/02/22 History 175 mcg-lutei 250 mcg-herb 178 tablet omega-3 fatty acids-fish oil 300 1 each PO DAILY Supplement 07/01/20 12/02/22 History mg-1,000 mg capsule acetaminophen 325 mg tablet 500 mg PO TID PRN Pain 12/02/22 12/02/22 History (Tylenol) ondansetron 4 mg disintegrating 4 mg sublingual Q8HP PRN Nausea 5 12/02/22 Rx tablet days #15 tabs New Prescriptions to Start Prescriptions: ondansetron Alvarez Vasquez Allergies Allergy/AdvReac Type Severity Reaction Status Date / Time acetaminophen [From Lortab] Allergy Verified 08/20/22 10:49 cod
--- NOTE | 2022-12-02 07:44 | PC.NURSE ---
dr massey at bedside.
--- NOTE | 2022-12-02 08:06 | PC.NURSE ---
pt given breakfast tray
--- NOTE | 2022-12-02 08:24 | PC.NURSE ---
pt ambulated to bathroom with cane. tolerated well.
== END 2022-12-02 09:00 | disposition admitted as inpatient to this hospital (09) ==
LOC: ER 12-02 02:47 → 2ND 12-02 07:25 → ICU 12-02 08:03
PROVIDERS: Emergency Provider Emergency Medicine; PCP Family Medicine; Visit Provider Internal Medicine Adolescent Medicine
DX: K40.30 Unilateral inguinal hernia, with obstruction, without gangrene, not specified as recurrent (principal)
CPT/HCPCS: 74177; 80053; 81001; 82150; 83605; 83690; 85025; 99285; C9803; J2405; Q9967; U0003; U0005

== ENCOUNTER 2022-12-29 13:42 | Emergency (ER) | payer MEDICARE, SELFPAY ==
--- NOTE | 2022-12-29 13:48 | HMH.EDABDPAI ---
Discharge Plan Disposition Patient Disposition: Home, Self-Care Condition: Good Chief Complaint: Abdominal Pain Prescriptions Prescriptions: No Action omega-3 fatty acids-fish oil 1 EACH capsule 1 each PO DAILY mi-fxk-tpfdh-rxxmv-jus-chtt033 1 EACH tablet 1 each PO DAILY ezqvnzbtzso-Z8-Mlpuzpjsy serr 1 EACH tablet 1 each PO DAILY acetaminophen [Tylenol] 325 mg Tablet 500 mg PO TIDP PRN (Reason: Mild Pain (Scale Score 1-4)) ondansetron 4 mg Tablet,Disintegrating 4 mg sublingual Q8HP PRN (Reason: Nausea) 5 Days Qty: 15 0RF Activity Restrictions/Add. Instructions Additional Instructions/Restrictions: Follow-up with Dr. Soto as scheduled. His office will call you tomorrow. Return to the emergency department immediately if you feel worse or if your hernia protrudes again and you are unable to put it back in. Return to the emergency department if you feel worse in any way. Clinical Impressions Clinical Impression: Right inguinal hernia Instructions Patient Instructions: DI for Groin Hernia Discharge ED Provider: Yasmin Craig Abdominal Pain HPI General Chief Complaint: Abdominal Pain Stated Complaint: Hernia Time Seen by Provider: 12/29/22 13:48 History of Present Illness HPI narrative: The patient presents to the emergency department via EMS because he has a longstanding right-sided abdominal hernia which he is unable to reduce after having sneezed about 1 hour ago. He denies any vomiting or nausea. He has had to have this hernia manually reduced in the past. He has had surgery on this hernia many years ago. Related Data Home Medications Medication Instructions Recorded Confirmed glucosamine NEt-U5-Jivupouqa 1 each PO DAILY JOINT 07/01/20 12/04/22 katya 1,500 mg-400 unit-100 mg tablet dmcngdrp-aem-dltzg 200 mcg-lycop 1 each PO DAILY Supplement 07/01/20 12/04/22 175 mcg-lutei 250 mcg-herb 178 tablet omega-3 fatty acids-fish oil 300 1 each PO DAILY Supplement 07/01/20 12/04/22 mg-1,000 mg capsule acetaminophen 325 mg tablet 500 mg PO TIDP PRN Mild Pain 12/02/22 12/04/22 (Tylenol) (Scale Score 1-4) Previous Rx's Medication Instructions Recorded ondansetron 4 mg disintegrating 4 mg sublingual Q8HP PRN Nausea 5 12/02/22 tablet days #15 tabs Allergies Allergy/AdvReac Type Severity Reaction Status Date / Time acetaminophen [From Lortab] Allergy Verified 12/04/22 13:50 codeine Allergy Verified 12/04/22 13:50 hydrocodone [From Lortab] Allergy Verified 12/04/22 13:50 PFSH PFSH Disclaimer: The information contained in this section may have been updated after the patient was seen, as this information can be updated by other users. Medical History BPH (benign prostatic hyperplasia) BPH loc w urin obs/LUTS Inguinal hernia Surgical History S/P TURP (status post transurethral resection of prostate) Social History Smoking Status: Never smoker second hand exposure: No alcohol intake: never substance use type: other current occupational status: retired Travel in the last 8 weeks: None household members: spouse housing: house current occupation: [employer] current occupational exposures/hazards: No caffeine: Yes ROS Obtained: Yes All systems reviewed & no additional complaints except as documented Physical Exam General General appearance: alert Head Head exam: atraumatic Eye Eye exam: Present normal appearance ENT ENT exam: Present normal exam Neck Neck exam: Present normal inspection and full ROM; Absent tenderness or meningismus Chest Chest inspection: Present normal inspection and symmetric chest wall rise; Absent tenderness Respiratory Respiratory exam: Present normal lung sounds bilaterally; Absent respiratory distress or a
[2022-12-29 13:50] VITALS: BP 182/83; PULSE 54; RESP 16; TEMP 36.7; O2SAT 99; BMI 24.3
[2022-12-29 14:00] VITALS: BP 156/100; PULSE 61; O2SAT 100
[2022-12-29 14:30] VITALS: BP 174/91
--- NOTE | 2022-12-29 14:45 | PC.NURSE ---
Dr Craig speaking with Dr Villa
[2022-12-29 15:00] VITALS: BP 159/79; PULSE 75; O2SAT 100
--- NOTE | 2022-12-29 15:00 | PC.NURSE ---
Dr Villa at bedside
[2022-12-29 16:07] VITALS: BP 160/91; PULSE 81; RESP 16; TEMP 36.7
== END 2022-12-29 16:24 | disposition home or self-care (01) ==
PROVIDERS: Emergency Provider Emergency Medicine
DX: K40.90 Unilateral inguinal hernia, without obstruction or gangrene, not specified as recurrent (principal); N40.1 Benign prostatic hyperplasia with lower urinary tract symptoms
CPT/HCPCS: 96372; 96374; 99284

== ENCOUNTER 2023-01-03 12:55 | Inpatient (IN) | payer MEDICARE, SELFPAY ==
[2023-01-03] VITALS (21 sets, daily range): BP systolic 134–182; BP diastolic 52–97; PULSE 58–87; RESP 12–18; TEMP 36.1–43; O2SAT 97–100; BMI 24.3; BMI 25.0
--- NOTE | 2023-01-03 13:15 | HMH.EDGENADL ---
Discharge Plan Disposition Patient Disposition: Admitted as Observation Prescriptions Prescriptions: No Action omega-3 fatty acids-fish oil 1 EACH capsule 1 each PO DAILY ja-xle-whdkf-kmtug-rns-zitk641 1 EACH tablet 1 each PO DAILY igeakrplyab-G2-Zthycqxbn serr 1 EACH tablet 1 each PO DAILY acetaminophen [Tylenol] 325 mg Tablet 500 mg PO TIDP PRN (Reason: Mild Pain (Scale Score 1-4)) ondansetron 4 mg Tablet,Disintegrating 4 mg sublingual Q8HP PRN (Reason: Nausea) 5 Days Qty: 15 0RF Referrals Follow up/Referrals: Provider,Referral, MD [Referring] - See instructions Clinical Impressions Clinical Impression: Incarcerated right inguinal hernia Instructions Patient Instructions: DI for Acute Abdominal Pain Discharge ED Provider: Mike Oden General Adult HPI General Chief complaint: Abdominal Pain Stated complaint: hernia Time Seen by Provider: 01/03/23 13:15 Mode of Arrival: EMS Source of Information: Patient Limitations: No Limitations Description of Symptoms (Recalled from ER Triage Doc. by RN): Pt reports his hernia popped out again in R inguinal. 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 Pt reports scheduled to have surgical repair of hernia on 01/08/[address] Villa. History of Present Illness HPI narrative: Patient is a 77-year-old male presenting with a right inguinal hernia discomfort. He was here few days ago with the same presentation at which point he required morphine and Dilaudid in order to allow them to manually reduce this. According to the nurse who is here today it required surgeon to come in to do this for him as the ER physician was unable to reduce this hernia. Patient states that severely uncomfortable at this point and its been nonreducible over the last 1-1/2 hours. Pain is moderate to severe. Patient denies any vomiting patient denies any decreased bowel movements or flatus. Related Data Home Medications Medication Instructions Recorded Confirmed glucosamine OQb-W6-Bgavpimtu 1 each PO DAILY JOINT 07/01/20 01/03/23 katya 1,500 mg-400 unit-100 mg tablet ljjjwcpb-rhs-hdnbp 200 mcg-lycop 1 each PO DAILY Supplement 07/01/20 01/03/23 175 mcg-lutei 250 mcg-herb 178 tablet omega-3 fatty acids-fish oil 300 1 each PO DAILY Supplement 07/01/20 01/03/23 mg-1,000 mg capsule acetaminophen 325 mg tablet 500 mg PO TIDP PRN Mild Pain 12/02/22 01/03/23 (Tylenol) (Scale Score 1-4) Previous Rx's Medication Instructions Recorded ondansetron 4 mg disintegrating 4 mg sublingual Q8HP PRN Nausea 5 12/02/22 tablet days #15 tabs Allergies Allergy/AdvReac Type Severity Reaction Status Date / Time acetaminophen [From Lortab] Allergy Verified 12/04/22 13:50 codeine Allergy Verified 12/04/22 13:50 hydrocodone [From Lortab] Allergy Verified 12/04/22 13:50 PFSH PFS Disclaimer: The information contained in this section may have been updated after the patient was seen, as this information can be updated by other users. Medical History (Updated 01/03/23 @ 16:03 by Mike Oden MD) BPH (benign prostatic hyperplasia) BPH loc w urin obs/LUTS Inguinal hernia SBO (small bowel obstruction) Surgical History S/P TURP (status post transurethral resection of prostate) Family History Other Family history of cancer Social History Smoking Status: Never smoker second hand exposure: No alcohol intake: never substance use type: other current occupational status: retired Travel in the last 8 weeks: None household members: spouse housing: house current occupation: [employer] current occupational exposures/hazards: No caffeine: Yes ROS Obtained: Yes All systems reviewed & no additional complaints except as documented Physical Exam General General appearance: alert and in no apparen
--- NOTE | 2023-01-03 13:51 | PC.NURSE ---
HARRISON BLACKBURN at
--- NOTE | 2023-01-03 14:08 | PC.NURSE ---
office staff for dr. garcia states dr. garcia is not in office today, dr. arellano is in surgery, attempted to get ahold of OR staff
--- NOTE | 2023-01-03 14:20 | PC.NURSE ---
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
--- NOTE | 2023-01-03 15:16 | PC.NURSE ---
Went in and rounded on patient; patient stated he is still in some pain even after the pain medication. Patient also stated he would like some ice chips. MD said that was okay. Ice chips given. RN and MD aware of pain
--- NOTE | 2023-01-03 15:34 | EXP.SURG.CON ---
History of Present Illness *Admission Date: 01/03/23 *Reason for visit:: Hernia *History of present illness: Patient is a 77-year-old male from [place] with history of previous open right inguinal hernia repair approximately 30 years ago reportedly with mesh placement. He has had recurrence and has had problems with intermittent incarceration and concomitant temporary bowel obstruction requiring reduction. He has seen Dr. Villa in the office on 12/04/2022 and consideration was being given for laparoscopic repair given the fact that this is a recurrent hernia. Patient wished to wait 1 to 2 months for surgery due to scheduling. He had presented to the emergency department this past Friday on 12/29/2022 with once again recurrent right inguinal hernia which was unable to be manually reduced by the patient. Dr. Villa had seen the patient at that time and was able to reduce the hernia. Patient states that several hours prior to presentation today to the emergency department he felt something pop . He had similar symptoms as he has had before when the hernia has been transiently incarcerated. Surgical consultation was obtained [facility] Disclaimer: The information contained in this section may have been updated after the patient was seen, as this information can be updated by other users. Medical History BPH (benign prostatic hyperplasia) BPH loc w urin obs/LUTS Inguinal hernia SBO (small bowel obstruction) Surgical History S/P TURP (status post transurethral resection of prostate) Family History Family history of cancer Social History Smoking Status: Never smoker second hand exposure: No alcohol intake: never substance use type: other current occupational status: retired Travel in the last 8 weeks: None household members: spouse housing: house current occupation: [employer] current occupational exposures/hazards: No caffeine: Yes Meds Home Medications and Allergies Home Medications Medication Instructions Recorded Confirmed Type glucosamine OVh-J0-Glfftmtmd 1 each PO DAILY JOINT 07/01/20 01/03/23 History katya 1,500 mg-400 unit-100 mg tablet jfssvwox-ftb-diaib 200 mcg-lycop 1 each PO DAILY Supplement 07/01/20 01/03/23 History 175 mcg-lutei 250 mcg-herb 178 tablet omega-3 fatty acids-fish oil 300 1 each PO DAILY Supplement 07/01/20 01/03/23 History mg-1,000 mg capsule acetaminophen 325 mg tablet 500 mg PO TIDP PRN Mild Pain 12/02/22 01/03/23 History (Tylenol) (Scale Score 1-4) ondansetron 4 mg disintegrating 4 mg sublingual Q8HP PRN Nausea 5 12/02/22 01/03/23 Rx tablet days #15 tabs New Prescriptions to Start Prescriptions: Allergies Allergy/AdvReac Type Severity Reaction Status Date / Time acetaminophen [From Lortab] Allergy Verified 12/04/22 13:50 codeine Allergy Verified 12/04/22 13:50 hydrocodone [From Lortab] Allergy Verified 12/04/22 13:50 Exam (Inpt) Vital signs and Labs for Last 24 Hours: Temp Pulse Resp BP Pulse Ox 98.2 F 73 17 163/82 H 99 01/03/23 12:55 01/03/23 15:14 01/03/23 15:14 01/03/23 15:14 01/03/23 15:14 I & O for Labs for Last 24 Hours: Intake & Output 01/01/23 01/02/23 01/03/23 01/04/23 11:59 11:59 11:59 11:59 Weight 165 lb Constitutional: no acute distress Head: Present normocephalic Neck: Present normal inspection Respiratory: Present CTA bilaterally; Absent accessory muscle use Cardiac: Present Regular Rate GI: Present soft and hernia Comments:: In the right inguinal area there is a well-healed surgical scar from prior repair. Palpation reveals a firm subcutaneous mass consistent with incarcerated hernia. This is tender to palpation and unable to be reduced. Assessment and Plan *Assessment and plan (1
--- NOTE | 2023-01-03 15:45 | PC.NURSE ---
pt changed into gown and all belongings in patient belonging bags and sat on his bed, along with his cane. He was given a urinal and hooked back up to the monitor. call light within reach, waiting on surgery to come and get him.
--- NOTE | 2023-01-03 16:35 | PC.NURSE ---
Surgery staff at with patient.
--- NOTE | 2023-01-03 16:41 | PC.NURSE ---
called, Stephani Lei is heading to hospital to be here during patient's surgery
--- NOTE | 2023-01-03 17:34 | EXP.ANES.CKL ---
[facility] Disclaimer: The information contained in this section may have been updated after the patient was seen, as this information can be updated by other users. Medical History (Updated 01/03/23 @ 16:03 by Mike Oden MD) BPH (benign prostatic hyperplasia) BPH loc w urin obs/LUTS Inguinal hernia SBO (small bowel obstruction) Surgical History S/P TURP (status post transurethral resection of prostate) Family History Other Family history of cancer Social History Smoking Status: Never smoker second hand exposure: No alcohol intake: never substance use type: other current occupational status: retired Travel in the last 8 weeks: None household members: spouse housing: house current occupation: [employer] current occupational exposures/hazards: No caffeine: Yes [facility] Anesthesia Checklist Patient Identification Patient Identification: Arm Band and Verbal (Name & ) Structural Data Admitted From: Emergency Dept Planned Operative Procedure/s: Right Inguinal Hernia Repair Consent for Planned Operative Procedure(s) Verified: Yes Verified Documents: Surgical Consent NPO Status Verified Time NPO: 08:00 Additional verifications Anesthesia Reactions: No Hx Blood Transfusions: No Blood Transfusion Reaction: No Airway Assessment C-Spine Mobility Assessed: Yes TMJ Mobility Assessed: Yes Dentition: Good Dentition Neurological Assessment Level of Consciousness: Awake, Alert and Appropriate Anesthesia Plan Anesthesia Risk discussed: Yes ASA Class: II Anesthesia Type: General
--- NOTE | 2023-01-03 17:43 | SUR.OPER ---
1712-Md attempted closed reduction of right inguinal hernia and was unsucessful, decision was made to proceed with open repair of right inguinal hernia 1727-time out performed at this time prior to incision 1729-incision made for open right inguinal hernia repair per Dr. Covarrubias
--- NOTE | 2023-01-03 19:18 | SUR.OPER ---
late entry... 1839-pt's neighbor/friend in lobby at this time and updated on progress of procedure, notified of change in plan of care/surgery, provided with pt's 's phone number for update 1842-called pt's at this time, notified of progress of surgery and emergent additional procedure of open repair right strangulated hernia, small bowel resection and updated consent. Consent for further procedure given by pt's Peggy Bond verified per SAADIA Zaragoza and MICHELLE Rocha, notified I would call and update with any further changes and when procedure is completed
--- NOTE | 2023-01-03 19:38 | SUR.OPER ---
1915-ADDITIONAL IV ANTIBIOTIC ADMINISTERED PER MD ORDERS AT THIS TIME- FLAGYL 500MG IVPB SEE ANESTHESIA RECORD FOR DETAILS
--- NOTE | 2023-01-03 20:17 | EXP.OP.NOTE ---
Date of procedure: 01/03/23 Pre-op Diagnosis:: Incarcerated recurrent right inguinal hernia Post-op Diagnosis:: Strangulated recurrent right inguinal hernia Procedure performed:: Open repair of strangulated recurrent right inguinal hernia with small bowel resection with placement of large sized Bard prefix mesh plug Surgeon:: Chandana Covarrubias MD EXHAUST EQUIPMENT OPERATOR:: Hari Melgar Anesthesia: GETA Estimated blood loss (mL): 50 Clinical Note:: Patient is a 77-year-old male from [place] with history of previous open right inguinal hernia repair approximately 30 years ago reportedly with mesh placement.? He has had recurrence and has had problems with intermittent incarceration and concomitant temporary bowel obstruction requiring reduction.? He has seen Dr. Villa in the office on 12/04/2022 and consideration was being given for laparoscopic repair given the fact that this is a recurrent hernia.? Patient wished to wait 1 to 2 months for surgery due to scheduling.? He had presented to the emergency department this past Friday on 12/29/2022 with once again recurrent right inguinal hernia which was unable to be manually reduced by the patient.? Dr. Villa had seen the patient at that time and was able to reduce the hernia.? Patient states that several hours prior to presentation today to the emergency department he felt something pop .? He had similar symptoms as he has had before when the hernia has been transiently incarcerated.? Surgical consultation was obtained. Patient was seen and examined in the emergency department. Attempt was made to reduce the hernia without success. He was having a large amount of pain with palpation and pressure of the hernia. Plan was made for operative intervention. Plan was made for attempt at reduction under anesthesia and if unsuccessful open repair. Operative findings:: He had a recurrent strangulated hernia with loop of bowel which was ischemic and devitalized. There was no evidence of any necrosis however. [place] anatomy was somewhat difficult to discern due to the prior hernia repair. Anatomy was severely altered. Operative note:: Patient was taken to the operating room. He was given antibiotics. He was positioned in supine position. Initially heavy sedation was achieved. Attempt was made to reduce the hernia relatively aggressively without success. Plan was made to proceed with open repair. Daniels catheter was placed. Abdomen and perineum were prepped and draped in the standard surgical fashion. Oblique incision was made in the right inguinal area superior to landmarks identifying the inguinal ligament. Previous repair was very low. Dissection was carried down through subcutaneous tissues and Charley's fascia using electrocautery. External oblique muscle was opened. Underlying anatomy was severely altered and identification of the normal anatomic structures was quite difficult. Prolonged dissection was carried out. There was noted to be a rather large firm somewhat black appearing hernia sac. This was isolated and dissected free from surrounding structures. Ultimately it was determined that this was a loop of bowel with minimal hernia sac. Was quite dusky and ischemic. There is no evidence of any perforation as of yet. With difficulty it was freed. Was a relatively small defect is a recurrent hernia. This had to be opened father to allow delivery of the small bowel for inspection. Dissection was carried out in a prolonged fashion. Ultimately some small bowel proximal and distal to the area of ischemia was able to be delivered. Small bowel resection was performed dividing the small bowel proximal and distal to this site of the ischemia with a BRUCE 75 type stapling device. Small bowel mesentery was then sequentially clamped divided and ligated with Vicryl ties. A lnrn-dn-rnke anastomosis was created with a BRUCE 75 type stapling device. Small bowel enterotomy was closed with a TX 60 B type stapling device. Several seromuscular 3-0 Vinicius
--- NOTE | 2023-01-03 20:18 | P.PNANES_ITS ---
[facility] Anesthesia Record Part I Anesthesia Record I Intake, IV Amount: 1,500 Estimated blood loss (mL): 50 Urine output (mL): 300 Blood Pressure: 148/86 SaO2: 98 Pulse Rate: 64 Respiratory Rate: 12 Temperature: 97.0 F Patient is:: Drowsy and Stable Stable to PACU at:: 20:10
--- NOTE | 2023-01-03 20:38 | EXP.GEN.HP ---
HPI HPI HPI: Patient is a 77-year-old male from [place] with history of previous open right inguinal hernia repair approximately 30 years ago reportedly with mesh placement. He has had recurrence and has had problems with intermittent incarceration and concomitant temporary bowel obstruction requiring reduction. He has seen Dr. Villa in the office on 12/04/2022 and consideration was being given for laparoscopic repair given the fact that this is a recurrent hernia. Patient wished to wait 1 to 2 months for surgery due to scheduling. He had presented to the emergency department this past Friday on 12/29/2022 with once again recurrent right inguinal hernia which was unable to be manually reduced by the patient. Dr. Villa had seen the patient at that time and was able to reduce the hernia. Patient states that several hours prior to presentation today to the emergency department he felt something pop . He had similar symptoms as he has had before when the hernia has been transiently incarcerated. Surgical consultation was obtained [facility] Disclaimer: The information contained in this section may have been updated after the patient was seen, as this information can be updated by other users. Medical History (Updated 01/03/23 @ 16:03 by Mike Oden MD) BPH (benign prostatic hyperplasia) BPH loc w urin obs/LUTS Inguinal hernia SBO (small bowel obstruction) Surgical History S/P TURP (status post transurethral resection of prostate) Family History Family history of cancer Social History Smoking Status: Never smoker second hand exposure: No alcohol intake: never substance use type: other current occupational status: retired Travel in the last 8 weeks: None household members: spouse housing: house current occupation: [employer] current occupational exposures/hazards: No caffeine: Yes Meds Home Medications and Allergies Home Medications Medication Instructions Recorded Confirmed Type glucosamine [id number] 1 each PO DAILY JOINT 07/01/20 01/03/23 History katya 1,500 mg-400 unit-100 mg tablet krqmgnxr-kdx-gtdew 200 mcg-lycop 1 each PO DAILY Supplement 07/01/20 01/03/23 History 175 mcg-lutei 250 mcg-herb 178 tablet omega-3 fatty acids-fish oil 300 1 each PO DAILY Supplement 07/01/20 01/03/23 History mg-1,000 mg capsule acetaminophen 325 mg tablet 500 mg PO TIDP PRN Mild Pain 12/02/22 01/03/23 History (Tylenol) (Scale Score 1-4) ondansetron 4 mg disintegrating 4 mg sublingual Q8HP PRN Nausea 5 12/02/22 01/03/23 Rx tablet days #15 tabs New Prescriptions to Start Prescriptions: Allergies Allergy/AdvReac Type Severity Reaction Status Date / Time acetaminophen [From Lortab] Allergy Verified 12/04/22 13:50 codeine Allergy Verified 12/04/22 13:50 hydrocodone [From Lortab] Allergy Verified 12/04/22 13:50 Exam Data for Last 24 hours Vital signs and Labs for Last 24 Hours: Temp Pulse Resp BP Pulse Ox 97.0 F L 64 12 148/86 H 98 01/03/23 20:19 01/03/23 20:19 01/03/23 20:19 01/03/23 20:19 01/03/23 20:10 I & O for Last 24 hours: Intake & Output 01/01/23 01/02/23 01/03/23 01/04/23 11:59 11:59 11:59 11:59 Intake Total 1500 / 1500 Balance 1500 / 1500 Weight 165 lb *Routine HEENT Exam Head: Present normocephalic Eye: Present EOMI ENT: Present mucous membranes moist *Routine Neck Exam Neck: Present supple *Routine Respiratory Exam Respiratory: Present CTA bilaterally *Routine Cardiovascular Exam Cardiovascular: Present RRR *Routine Abdominal Exam Abdominal: Present soft and hernia Comments: He has a bulge in the right groin area. It is somewhat firm. Unable to reduce and attempts at reduction elicits significant pain. *Routine Rectal Exam Rectal:: deferred *Routine Genitalia Ex
--- NOTE | 2023-01-03 20:59 | PC.NURSE ---
Pt arrived to the floor via stretcher from surgery @ 2044.
--- NOTE | 2023-01-03 21:10 | PC.NURSE ---
2040-detailed report called to SAADIA Emerson 2043-pt transported to post op via stretcher w/salvador rails up and left in care of SAADIA Emerson with bed locked in lowest position, vss, pt stable
[2023-01-03 22:35] LABS: Microscopic,Cath URINE MICROSCOPIC (MICROSCOPIC)
[2023-01-03 22:58] LABS: Appearance,Urine/Cath CLEAR (Clear); Bilirubin,Cath Negative (Negative); Blood, Urine/Cath Negative (Negative); Color,Urine/Cath YELLOW (Yellow); Glucose,Urine/Cath (UA) Negative (Negative); Ketones,Urine/Cath 1+ (Negative); Leukocyte Esterase,Cath Negative (Negative); Nitrate,Cath Negative (Negative); PH,Urine/Cath 7.5 (5.0-8.5); Protein,Urine/Cath Negative (Negative); Specific Gravity, Urine/Cath 1.025 (1.005-1.030); Urobilinogen,Cath 0.2 EU/dl (0.2)
[2023-01-03 23:00] LABS: Squamous Epithelial Ur./Cath Occasional #/hpf (0-5); WBC,Urine/Cath Occasional #/hpf (0-3)
[2023-01-04] VITALS (11 sets, daily range): BP systolic 99–155; BP diastolic 66–86; PULSE 71–108; RESP 16–22; TEMP 36.4–37; O2SAT 92–100; BMI 25.0
--- NOTE | 2023-01-04 04:18 | PC.NURSE ---
pt. aox 4 with a f/c in place. Right groin dressing c/d/i. L nare with NG tube to LWS. 20g R FA with LR at 125 ml/hr. No changes over night.
[2023-01-04 09:40] LABS: Coronavirus 19, PCR Not Detected (NotDetected); Influenza A, PCR Not Detected (NotDetected); Influenza B, PCR Not Detected (NotDetected)
--- NOTE | 2023-01-04 10:05 | P.PN_ITS ---
Subjective Narrative: Patient without significant complaints. Has had some loose bowel movements which appear to reportedly contained some blood. No significant pain. Exam Data for Last 24 hours Vital signs and Labs for Last 24 Hours: Temp Pulse Resp BP Pulse Ox 97.8 F 71 21 128/86 99 01/04/23 08:00 01/04/23 08:00 01/04/23 08:00 01/04/23 08:00 01/04/23 08:00 Laboratory Results - last 24 hr 01/03/23 17:20: Urine Color Yellow, Urine Appearance Clear, Urine pH 7.5, Ur Specific [place] 1.025, Urine Protein Negative, Urine Glucose (UA) Negative, Urine Ketones 1+, Urine Blood Negative, Urine Nitrate Negative, Urine Bilirubin Negative, Urine Urobilinogen 0.2, Ur Leukocyte Esterase Negative, Urine RBC None, Urine WBC Occasional, Ur Squamous Epith Cells Occasional, Urine Bacteria None I & O for Last 24 hours: Intake & Output 01/01/23 01/02/23 01/03/23 01/04/23 11:59 11:59 11:59 11:59 Intake Total 2375 / 2375 Output Total 850 / 850 Balance 1525 / 1525 Weight 169 lb 3.2 oz *Routine Abdominal Exam Abdominal: Present soft Progress Note: A&P Assessment and plan (1) Incarcerated right inguinal hernia: Status: Acute Assessment and plan: DC NG tube. Continue NPO. DC Daniels. Monitor labs.
--- NOTE | 2023-01-04 10:10 | HMH.PHAINT1 ---
Pharmacy Intervention Comments: MEDICATION RECONCILIATION COMPLETE USING LIST FROM RECENT HOSPITAL DISCHARGE (12/2022)
--- NOTE | 2023-01-04 16:36 | PC.NURSE ---
aox4, has slept on and off this shift ambulating without difficulty in room and to restroom. he has not required o2 support. reports bm this shift with mild diarrhea. has not c/o pain thus far. larios cath removed this shift. pt urinating without difficulty.
[2023-01-05] VITALS: BP 111/65; PULSE 84; RESP 21; TEMP 37.1; O2SAT 95
--- NOTE | 2023-01-05 03:46 | PC.NURSE ---
patient a/o x 4. pleasant and cooperative. N/G tube removed at 2300. PATIENT REPORTS PAIN 5/10 WHEN COUGHING AND DEEP BREATHING. MEDICATED AT 2315 WITH PERCOCET 5MG/325MG PO WITH SIPS WATER. IS AMBULATORY WITH CANE AND SBA. DRSG TO RIGHT GROIN C/D/I. THIGH HIGH TEDS ON BUT PATIENT HAD ME TURN THEM OFF EARLY IN THE SHIFT. PATIENT TEACHING RE: DVTs PERFORMED. VITAL SIGNS STABLE/AFEBRILE.
[2023-01-05 04:00] VITALS: BP 105/61; PULSE 76; RESP 20; TEMP 36.9; O2SAT 95; BMI 25.4
[2023-01-05 08:00] VITALS: BP 134/71; PULSE 78; RESP 16; TEMP 36.7; O2SAT 93; O2SAT 98
[2023-01-05 08:12] LABS: Basophils % 0.4 % (0.1-2.0); Eosinophils # 0.1 K/mm3 (0.0-0.4); Eosinophils % 1.6 % (0.1-12.0); Hematocrit 24.7 % (42.0-52.0); Hemoglobin 8.3 g/dL (14.1-18.0); Lymphocytes # 2.4 K/mm3 (0.7-4.5); Lymphocytes % 32.7 % (10-50); Mean Corpuscular HGB Conc 33.6 g/dL (31.8-35.4); Mean Corpuscular Hemoglobin 32.3 pg (27.0-31.2); Mean Platelet Volume 8.5 fl (7.4-10.4); Monocytes # 0.4 K/mm3 (0.1-1.0); Monocytes % 4.8 % (1.7-9.3); Neutrophils # 4.4 K/mm3 (1.8-7.8); Neutrophils % 60.5 % (37.0-80.0); Platelet Count 206 K/mm3 (142-424); Red Blood Count 2.57 M/mm3 (4.60-6.20); Red Cell Distribution Width 13.3 % (11.5-17.5); White Blood Count 7.2 K/mm3 (4.8-10.8)
[2023-01-05 08:27] LABS: Chloride 110 mmol/L (98-107)
[2023-01-05 08:28] LABS: Potassium 3.9 mmoL/L (3.5-5.1); Sodium 137 mmol/L (136-145)
[2023-01-05 08:31] LABS: Anion Gap 9.9 mEq/L (5-15); Blood Urea Nitrogen 11 mg/dl (9-20); Calcium 7.1 mg/dl (8.4-10.2); Carbon Dioxide 21 mmol/L (22.0-30.0); Creatinine Clearance Estimated 67 mL/min (50-200); Estimated Glomerular Filt Rate 109 ml/min (>60); GFR (African American) 132 ML/MIN (>60); Glucose 77 mg/dl (74-100)
--- NOTE | 2023-01-05 10:14 | P.PN_ITS ---
Subjective Narrative: Patient's main concern is he has had several bloody bowel movements. No significant pain. Tolerated NG out Exam Data for Last 24 hours Vital signs and Labs for Last 24 Hours: Temp Pulse Resp BP Pulse Ox 98.1 F 78 16 134/71 98 01/05/23 08:00 01/05/23 08:00 01/05/23 08:00 01/05/23 08:00 01/05/23 08:00 Laboratory Results - last 24 hr 01/04/23 09:35: SARS-CoV-2 (PCR) Not detected, Influenza A Untype (PCR) Not detected, Influenza Type B (PCR) Not detected 01/05/23 07:50: WBC 7.2, RBC 2.57 L, Hgb 8.3 L, Hct 24.7 L, MCV 96.0 H, MCH 32.3 H, MCHC 33.6, RDW 13.3, Plt Count 206, MPV 8.5, Neut % (Auto) 60.5, Lymph % (Auto) 32.7, [place] % (Auto) 4.8, Eos % (Auto) 1.6, Baso % (Auto) 0.4, Neut # (Auto) 4.4, Lymph # (Auto) 2.4, [place] # (Auto) 0.4, Eos # (Auto) 0.1, Baso # (Auto) 0.0 01/05/23 07:50: Sodium 137, Potassium 3.9, Chloride 110 H, Carbon Dioxide 21 L, Anion Gap 9.9, BUN 11, Creatinine 0.70, Estimated Creat Clear 67, Estimated GFR 109, Est GFR ( Amer) 132, Glucose 77, Calcium 7.1 L I & O for Last 24 hours: Intake & Output 01/02/23 01/03/23 01/04/23 01/05/23 11:59 11:59 11:59 11:59 Intake Total 2375 / 2375 1806 / 1806 Output Total 850 / 850 1300 / 1300 Balance 1525 / 1525 506 / 506 Weight 169 lb 3.2 oz 171 lb 9.6 oz *Routine Abdominal Exam Abdominal: Present soft Comments: Incision clean Progress Note: A&P Assessment and plan (1) Incarcerated right inguinal hernia: Status: Acute Assessment and plan: He has shown some decrease in hemoglobin. Hemoglobin 8.3. Likely some oozing at the small bowel anastomosis. Hopefully this is a self-limited issue. Continue to monitor. I will give him some sips of clear liquids today.
[2023-01-05 16:00] VITALS: BP 127/75; PULSE 82; RESP 16; TEMP 36.9; O2SAT 100
[2023-01-05 23:56] VITALS: BP 133/58; PULSE 76; RESP 20; TEMP 36.9; O2SAT 97
[2023-01-06] VITALS (13 sets, daily range): BP systolic 129–167; BP diastolic 70–89; PULSE 65–83; RESP 17–19; TEMP 36.7–37; O2SAT 98–100; BMI 25.4
--- NOTE | 2023-01-06 04:25 | PC.NURSE ---
Pt. to have labs in the am to check his hematocrit and hemoglobin levels. He has been having dark stools from what i have gotten in report and from the patients account.
[2023-01-06 06:03] LABS: Basophils % 0.5 % (0.1-2.0); Eosinophils # 0.2 K/mm3 (0.0-0.4); Hematocrit 23.3 % (42.0-52.0); Lymphocytes # 2.1 K/mm3 (0.7-4.5); Lymphocytes % 35.1 % (10-50); Mean Corpuscular HGB Conc 31.9 g/dL (31.8-35.4); Mean Corpuscular Hemoglobin 30.4 pg (27.0-31.2); Mean Corpuscular Volume 95.4 fl (80-94); Mean Platelet Volume 8.4 fl (7.4-10.4); Monocytes # 0.3 K/mm3 (0.1-1.0); Monocytes % 4.7 % (1.7-9.3); Neutrophils # 3.4 K/mm3 (1.8-7.8); Neutrophils % 55.7 % (37.0-80.0); Platelet Count 186 K/mm3 (142-424); Red Blood Count 2.44 M/mm3 (4.60-6.20); White Blood Count 6.1 K/mm3 (4.8-10.8)
[2023-01-06 06:12] LABS: Chloride 111 mmol/L (98-107)
[2023-01-06 06:13] LABS: Potassium 3.6 mmoL/L (3.5-5.1); Sodium 139 mmol/L (136-145)
[2023-01-06 06:15] LABS: Blood Urea Nitrogen 13 mg/dl (9-20); Creatinine Clearance Estimated 67 mL/min (50-200); Estimated Glomerular Filt Rate 93 ml/min (>60); GFR (African American) 113 ML/MIN (>60)
[2023-01-06 06:16] LABS: Anion Gap 4.6 mEq/L (5-15); Calcium 7.5 mg/dl (8.4-10.2); Carbon Dioxide 27 mmol/L (22.0-30.0); Glucose 75 mg/dl (74-100)
[2023-01-06 06:17] LABS: Hemoglobin 7.4 g/dL (14.1-18.0)
--- NOTE | 2023-01-06 06:17 | P.PN_ITS ---
Subjective Patient reports: no new complaints Narrative: Patient has no new complaints. No bloody bowel movements. Exam Data for Last 24 hours Vital signs and Labs for Last 24 Hours: Temp Pulse Resp BP Pulse Ox 98.5 F 76 20 133/58 L 97 01/05/23 23:56 01/05/23 23:56 01/05/23 23:56 01/05/23 23:56 01/05/23 23:56 Laboratory Results - last 24 hr 01/05/23 07:50: WBC 7.2, RBC 2.57 L, Hgb 8.3 L, Hct 24.7 L, MCV 96.0 H, MCH 32.3 H, MCHC 33.6, RDW 13.3, Plt Count 206, MPV 8.5, Neut % (Auto) 60.5, Lymph % (Auto) 32.7, [place] % (Auto) 4.8, Eos % (Auto) 1.6, Baso % (Auto) 0.4, Neut # (Auto) 4.4, Lymph # (Auto) 2.4, [place] # (Auto) 0.4, Eos # (Auto) 0.1, Baso # (Auto) 0.0 01/05/23 07:50: Sodium 137, Potassium 3.9, Chloride 110 H, Carbon Dioxide 21 L, Anion Gap 9.9, BUN 11, Creatinine 0.70, Estimated Creat Clear 67, Estimated GFR 109, Est GFR ( Amer) 132, Glucose 77, Calcium 7.1 L 01/06/23 05:44: WBC 6.1, RBC 2.44 L, Hct 23.3 L, MCV 95.4 H, MCH 30.4, MCHC 31.9, RDW 13.0, Plt Count 186, MPV 8.4, Neut % (Auto) 55.7, Lymph % (Auto) 35.1, [place] % (Auto) 4.7, Eos % (Auto) 4.0, Baso % (Auto) 0.5, Neut # (Auto) 3.4, Lymph # (Auto) 2.1, [place] # (Auto) 0.3, Eos # (Auto) 0.2, Baso # (Auto) 0.0 I & O for Last 24 hours: Intake & Output 01/03/23 01/04/23 01/05/23 01/06/23 11:59 11:59 11:59 11:59 Intake Total 2375 / 2375 1806 / 1806 684 / 684 Output Total 850 / 850 1300 / 1300 1600 / 1600 Balance 1525 / 1525 506 / 506 -916 / -916 Weight 169 lb 3.2 oz 171 lb 9.6 oz 172 lb *Routine Exam Comments: Bruising without hematoma. Incision clean with minimal surrounding bruising Progress Note: A&P Assessment and plan (1) Incarcerated right inguinal hernia: Status: Acute Assessment and plan: Check CBC. Could require transfusion. Clear liquid diet.
[2023-01-06 13:42] LABS: Hematocrit 31.1 % (42.0-52.0)
[2023-01-06 13:43] LABS: Hemoglobin 10.2 g/dL (14.1-18.0)
--- NOTE | 2023-01-06 18:24 | PC.NURSE ---
Patient had 2 bowel movements during shift, some blood noted. VS stable. Some nausea noted at dinnertime, zofran given and patient stated he felt better. Incision site clean dry and intact. Bowel sounds active.
[2023-01-07 04:00] VITALS: BP 125/68; PULSE 59; RESP 16; TEMP 36.7; O2SAT 98; BMI 23.8
--- NOTE | 2023-01-07 05:37 | PC.NURSE ---
Pt has c/o of pain in RLQ abd 1x t/o shift. PRN pain medication administered. No other c/o voiced to staff. Incision intact, open to air. Call light within reach.
[2023-01-07 06:37] LABS: Eosinophils # 0.3 K/mm3 (0.0-0.4); Mean Corpuscular Hemoglobin 30.5 pg (27.0-31.2); Mean Platelet Volume 8.1 fl (7.4-10.4); Monocytes # 0.3 K/mm3 (0.1-1.0); Red Cell Distribution Width 15.3 % (11.5-17.5)
[2023-01-07 06:42] LABS: Chloride 110 mmol/L (98-107); Potassium 3.4 mmoL/L (3.5-5.1); Sodium 140 mmol/L (136-145)
[2023-01-07 06:45] LABS: Anion Gap 6.4 mEq/L (5-15); Blood Urea Nitrogen 9 mg/dl (9-20); Calcium 7.7 mg/dl (8.4-10.2); Carbon Dioxide 27 mmol/L (22.0-30.0); Creatinine Clearance Estimated 63 mL/min (50-200); Estimated Glomerular Filt Rate 93 ml/min (>60); GFR (African American) 113 ML/MIN (>60); Glucose 74 mg/dl (74-100)
[2023-01-07 06:55] LABS: Basophils % 0.7 % (0.1-2.0); Eosinophils % 4.4 % (0.1-12.0); Hematocrit 26.1 % (42.0-52.0); Lymphocytes # 1.7 K/mm3 (0.7-4.5); Lymphocytes % 29.7 % (10-50); Mean Corpuscular Volume 92.5 fl (80-94); Monocytes % 5.1 % (1.7-9.3); Neutrophils # 3.5 K/mm3 (1.8-7.8); Neutrophils % 60.1 % (37.0-80.0); Platelet Count 198 K/mm3 (142-424); Red Blood Count 2.83 M/mm3 (4.60-6.20); White Blood Count 5.8 K/mm3 (4.8-10.8)
[2023-01-07 06:58] LABS: Hemoglobin 8.6 g/dL (14.1-18.0)
--- NOTE | 2023-01-07 07:48 | P.PN_ITS ---
Subjective Narrative: Patient without any significant complaints. Tolerating clear liquid diet without issue. No obvious GI bleeding. Received 1 unit of packed red blood cells yesterday for hemoglobin of 7.4 with interestingly posttransfusion hemoglobin of 10.2. Hemoglobin 8.6 this morning. Exam Data for Last 24 hours Vital signs and Labs for Last 24 Hours: Temp Pulse Resp BP Pulse Ox 98.0 F 59 L 16 125/68 98 01/07/23 04:00 01/07/23 04:00 01/07/23 04:00 01/07/23 04:00 01/07/23 04:00 Laboratory Results - last 24 hr 01/06/23 06:42: Blood Type O Positive, Antibody Screen Negative, Crossmatch (AHG) See Detail 01/06/23 13:22: Hgb 10.2 L D, Hct 31.1 L 01/07/23 06:05: WBC 5.8, RBC 2.83 L, Hgb 8.6 L D, Hct 26.1 L, MCV 92.5, MCH 30.5, MCHC 33.0, RDW 15.3, Plt Count 198, MPV 8.1, Neut % (Auto) 60.1, Lymph % (Auto) 29.7, [place] % (Auto) 5.1, Eos % (Auto) 4.4, Baso % (Auto) 0.7, Neut # (Auto) 3.5, Lymph # (Auto) 1.7, [place] # (Auto) 0.3, Eos # (Auto) 0.3, Baso # (Auto) 0.0 01/07/23 06:05: Sodium 140, Potassium 3.4 L, Chloride 110 H, Carbon Dioxide 27, Anion Gap 6.4, BUN 9 D, Creatinine 0.80, Estimated Creat Clear 63, Estimated GFR 93, Est GFR ( Amer) 113, Glucose 74, Calcium 7.7 L I & O for Last 24 hours: Intake & Output 01/04/23 01/05/23 01/06/23 01/07/23 11:59 11:59 11:59 11:59 Intake Total 2375 / 2375 1806 / 1806 1164 / 1164 4436 / 4436 Output Total 850 / 850 1300 / 1300 3325 / 3325 3810 / 3810 Balance 1525 / 1525 506 / 506 -2161 / -2161 626 / 626 Weight 169 lb 3.2 oz 171 lb 9.6 oz 172 lb 161 lb 6 oz *Routine Abdominal Exam Abdominal: Present soft Comments: Some bruising. No hematoma. Progress Note: A&P Assessment and plan (1) Incarcerated right inguinal hernia: Status: Acute Assessment and plan: Advance diet. Possible discharge in 24 hours if hemoglobin reasonable.
[2023-01-07 08:00] VITALS: BP 143/82; PULSE 65; RESP 19; TEMP 36.6; O2SAT 97
--- NOTE | 2023-01-07 09:56 | P.PNANES_ITS ---
[facility] Anesthesia Record Part II Anesthesia Record Part II Discharge Time: 20:40 Destination: floor PACU nurse assessment reviewed?: Yes Patient Condition:: Good Anesthesia Complications:: None Swallowing reflex intact?: Yes Cyanosis?: No Blood Pressure: 165/90 Pulse Rate: 70 Temperature: 97.2 F Mental Status: Alert & Oriented Pain level:: 0 Nausea and/or vomitting:: None Intake, IV Amount: 1,000
[2023-01-07 09:57] VITALS: BP 165/90; PULSE 70; TEMP 36.2
--- NOTE | 2023-01-07 10:40 | PC.NURSE ---
Dr. Covarrubias made aware of pts dark red, loose BMs today. No new orders at this time. Pt. has no complaints at this time. Will continue to monitor.
[2023-01-07 15:43] VITALS: BP 134/74; PULSE 75; RESP 17; TEMP 36.5; O2SAT 100
[2023-01-07 20:00] VITALS: BP 146/76; PULSE 74; RESP 20; TEMP 36.6; O2SAT 99
[2023-01-08 04:00] VITALS: BP 151/79; PULSE 68; RESP 20; TEMP 36.5; O2SAT 99; BMI 24.0
[2023-01-08 06:44] LABS: Basophils % 0.4 % (0.1-2.0); Eosinophils # 0.3 K/mm3 (0.0-0.4); Eosinophils % 5.1 % (0.1-12.0); Hematocrit 28.7 % (42.0-52.0); Hemoglobin 9.1 g/dL (14.1-18.0); Lymphocytes # 1.6 K/mm3 (0.7-4.5); Lymphocytes % 31.2 % (10-50); Mean Corpuscular HGB Conc 31.7 g/dL (31.8-35.4); Mean Corpuscular Hemoglobin 29.8 pg (27.0-31.2); Mean Corpuscular Volume 93.9 fl (80-94); Mean Platelet Volume 7.9 fl (7.4-10.4); Monocytes # 0.4 K/mm3 (0.1-1.0); Monocytes % 6.9 % (1.7-9.3); Neutrophils # 2.9 K/mm3 (1.8-7.8); Neutrophils % 56.4 % (37.0-80.0); Platelet Count 254 K/mm3 (142-424); Red Blood Count 3.05 M/mm3 (4.60-6.20); Red Cell Distribution Width 15.4 % (11.5-17.5); White Blood Count 5.2 K/mm3 (4.8-10.8)
[2023-01-08 06:47] LABS: Chloride 109 mmol/L (98-107)
--- NOTE | 2023-01-08 06:47 | P.PN_ITS ---
Subjective Patient reports: no new complaints and feels better Exam Data for Last 24 hours Vital signs and Labs for Last 24 Hours: Temp Pulse Resp BP Pulse Ox 97.7 F 68 20 151/79 H 99 01/08/23 04:00 01/08/23 04:00 01/08/23 04:00 01/08/23 04:00 01/08/23 04:00 Laboratory Results - last 24 hr 01/07/23 06:05: WBC 5.8, RBC 2.83 L, Hgb 8.6 L D, Hct 26.1 L, MCV 92.5, MCH 30.5, MCHC 33.0, RDW 15.3, Plt Count 198, MPV 8.1, Neut % (Auto) 60.1, Lymph % (Auto) 29.7, [place] % (Auto) 5.1, Eos % (Auto) 4.4, Baso % (Auto) 0.7, Neut # (Auto) 3.5, Lymph # (Auto) 1.7, [place] # (Auto) 0.3, Eos # (Auto) 0.3, Baso # (Auto) 0.0 01/07/23 06:05: Carbon Dioxide 27, Anion Gap 6.4, BUN 9 D, Creatinine 0.80, Estimated Creat Clear 63, Estimated GFR 93, Est GFR ( Amer) 113, Glucose 74, Calcium 7.7 L 01/08/23 06:15: WBC 5.2, RBC 3.05 L, Hgb 9.1 L, Hct 28.7 L, MCV 93.9, MCH 29.8, MCHC 31.7 L, RDW 15.4, Plt Count 254 D, MPV 7.9, Neut % (Auto) 56.4, Lymph % (Auto) 31.2, [place] % (Auto) 6.9, Eos % (Auto) 5.1, Baso % (Auto) 0.4, Neut # (Auto) 2.9, Lymph # (Auto) 1.6, [place] # (Auto) 0.4, Eos # (Auto) 0.3, Baso # (Auto) 0.0 I & O for Last 24 hours: Intake & Output 01/05/23 01/06/23 01/07/23 01/08/23 11:59 11:59 11:59 11:59 Intake Total 1806 / 1806 1164 / 1164 5936 / 5936 1820 / 1820 Output Total 1300 / 1300 3325 / 3325 5410 / 5410 1500 / 1500 Balance 506 / 506 -2161 / -2161 526 / 526 320 / 320 Weight 171 lb 9.6 oz 172 lb 161 lb 6 oz 162 lb 9.6 oz Constitutional Constitutional: no acute distress *Routine Respiratory Exam Respiratory: Present normal respiratory effort; Absent respiratory distress *Routine Cardiovascular Exam Cardiovascular: Absent tachycardia *Routine Abdominal Exam Abdominal: Present soft Comments: Incision healing without sign of infection *Routine Exam Comments: Postoperative scrotal/penile ecchymosis. No significant swelling. No erythema. Progress Note: A&P Assessment and plan (1) Incarcerated right inguinal hernia: Status: Acute Assessment and plan: Overall, continuing to improve status post open repair with partial small bowel resection. Discharge home with close outpatient follow-up (2) Postoperative anemia: Status: Acute Assessment and plan: Stable with no signs of ongoing blood loss. Excellent response to 1 unit packed red blood cells.
[2023-01-08 06:48] LABS: Potassium 3.3 mmoL/L (3.5-5.1); Sodium 142 mmol/L (136-145)
[2023-01-08 06:51] LABS: Anion Gap 6.3 mEq/L (5-15); Blood Urea Nitrogen 8 mg/dl (9-20); Calcium 7.8 mg/dl (8.4-10.2); Carbon Dioxide 30 mmol/L (22.0-30.0); Creatinine Clearance Estimated 64 mL/min (50-200); Estimated Glomerular Filt Rate 93 ml/min (>60); GFR (African American) 113 ML/MIN (>60); Glucose 94 mg/dl (74-100)
--- NOTE | 2023-01-08 06:59 | EXP.DC.SUM ---
General Admission date:: 01/03/23 HPI HPI HPI: Patient is a 77-year-old male from [place] with history of previous open right inguinal hernia repair approximately 30 years ago reportedly with mesh placement. He has had recurrence and has had problems with intermittent incarceration and concomitant temporary bowel obstruction requiring reduction. He has seen Dr. Villa in the office on 12/04/2022 and consideration was being given for laparoscopic repair given the fact that this is a recurrent hernia. Patient wished to wait 1 to 2 months for surgery due to scheduling. He had presented to the emergency department this past Friday on 12/29/2022 with once again recurrent right inguinal hernia which was unable to be manually reduced by the patient. Dr. Villa had seen the patient at that time and was able to reduce the hernia. Patient states that several hours prior to presentation today to the emergency department he felt something pop . He had similar symptoms as he has had before when the hernia has been transiently incarcerated. Surgical consultation was obtained Hospital Course Hospital Course Hospital Course: The patient underwent open repair of strangulated recurrent right inguinal hernia with small bowel resection with placement of large sized Bard prefix mesh plug (please see operative report for detail). Postoperatively, he convalesced well. He remained afebrile with stable and normal vital signs. Postoperative ileus continuously improved as his diet was slowly advanced. In the early postoperative period he developed bloody bowel movements felt to be secondary to sanguinous ooze from his anastomosis. On postoperative day 3 his hemoglobin was 7.4. He received 1 unit packed red blood cell transfusion with excellent response. On the day of discharge his hemoglobin was 9.1 and he showed no evidence of continued blood loss. On the morning of postoperative day 5 he was deemed appropriate for discharge with close outpatient follow-up. As stated above he was afebrile with stable normal vital signs. He was ambulating without difficulty. Exam Data for Last 24 hours Vital signs and Labs for Last 24 Hours: Temp Pulse Resp BP Pulse Ox 97.7 F 68 20 151/79 H 99 01/08/23 04:00 01/08/23 04:00 01/08/23 04:00 01/08/23 04:00 01/08/23 04:00 Laboratory Results - last 24 hr 01/07/23 06:05: WBC 5.8, RBC 2.83 L, Hgb 8.6 L D, Hct 26.1 L, MCV 92.5, MCH 30.5, MCHC 33.0, RDW 15.3, Plt Count 198, MPV 8.1, Neut % (Auto) 60.1, Lymph % (Auto) 29.7, [place] % (Auto) 5.1, Eos % (Auto) 4.4, Baso % (Auto) 0.7, Neut # (Auto) 3.5, Lymph # (Auto) 1.7, [place] # (Auto) 0.3, Eos # (Auto) 0.3, Baso # (Auto) 0.0 01/07/23 06:05: Carbon Dioxide 27, Anion Gap 6.4, BUN 9 D, Creatinine 0.80, Estimated Creat Clear 63, Estimated GFR 93, Est GFR ( Amer) 113, Glucose 74, Calcium 7.7 L 01/08/23 06:15: WBC 5.2, RBC 3.05 L, Hgb 9.1 L, Hct 28.7 L, MCV 93.9, MCH 29.8, MCHC 31.7 L, RDW 15.4, Plt Count 254 D, MPV 7.9, Neut % (Auto) 56.4, Lymph % (Auto) 31.2, [place] % (Auto) 6.9, Eos % (Auto) 5.1, Baso % (Auto) 0.4, Neut # (Auto) 2.9, Lymph # (Auto) 1.6, [place] # (Auto) 0.4, Eos # (Auto) 0.3, Baso # (Auto) 0.0 01/08/23 06:15: Sodium 142, Potassium 3.3 L, Chloride 109 H, Carbon Dioxide 30, Anion Gap 6.3, BUN 8 L, Creatinine 0.80, Estimated Creat Clear 64, Estimated GFR 93, Est GFR ( Amer) 113, Glucose 94, Calcium 7.8 L I & O for Last 24 hours: Intake & Output 01/05/23 01/06/23 01/07/23 01/08/23 11:59 11:59 11:59 11:59 Intake Total 1806 / 1806 1164 / 1164 5936 / 5936 1820 / 1820 Output Total 1300 / 1300 3325 / 3325 5410 / 5410 2100 / 2100 Balance 506 / 506 -2161 / -2161 526 / 526 -280 / -280 Weight 171 lb 9.6 oz 172 lb 161 lb 6 oz 162 lb 9.6 oz Constitutional Constitutional: no acute distress *Routine HEENT Exam Head: Present normocephalic Eye: Present EOMI ENT: Present mucous membranes moist *Routine Neck Exam Neck: Present full ROM Routine Chest/Breast/Axilla
--- NOTE | 2023-01-08 07:29 | PC.NURSE ---
Pt did not voice any c/o to staff t/o night. Site glued, open to air. Call light within reach.
[2023-01-08 07:38] VITALS: BP 147/81; PULSE 88; RESP 18; TEMP 36.7; O2SAT 98
--- NOTE | 2023-01-08 09:40 | [facility].PHAINT1 ---
Pharmacy Intervention Comments: Discussed discharge medication list with patient. Patient verbalized understanding and had no questions at this time
--- NOTE | 2023-01-09 14:43 | CARE MANAGER ---
Spoke with patient for pot-discharge phone interview, no issues noted.
== END 2023-01-08 10:10 | disposition home or self-care (01) | DRG 351 ==
LOC: ER 16:03 → SDC 17:43 → 2ND 18:52
PROVIDERS: Admitting Provider Surgery; Emergency Provider Student in an Organized Health Care Education/Training Program; PCP Family Medicine; Visit Provider Surgery
PROC: 0YU50JZ Supplement Right Inguinal Region with Synthetic Substitute, Open Approach (ICD-10-PCS; principal; 2023-01-03 16:30)
DX: K40.31 Unilateral inguinal hernia, with obstruction, without gangrene, recurrent (principal); K56.7 Ileus, unspecified; K91.89 Other postprocedural complications and disorders of digestive system; K92.1 Melena; N40.0 Benign prostatic hyperplasia without lower urinary tract symptoms; D64.9 Anemia, unspecified
CPT/HCPCS: 49507; 36415; 80048; 81001; 85014; 85018; 85025; 86850; 88302; 88307; 99285; C9803; J2405; P9016; U0003; U0005